=== PATIENT | male | born 1945 ===

== ENCOUNTER 2016-10-22 10:06 | Day surgery (SDC) | payer MEDICARE, MEDICAID ==
[2016-10-22 10:22] VITALS: BMI 28.1
[2016-10-22] MEDS ORDERED: MethylPREDNISolone Depo 40 mg/ml Inj ONE (11:03)
[2016-10-22] MEDS ORDERED: Bupivacaine HCl 0.5% PF (10 ml) Inj ONE (11:03)
[2016-10-22] MEDS ORDERED: Lidocaine 1% Inj (20ml) ONE (11:03)
[2016-10-22] MEDS ORDERED: methylPREDNISolone Depo 80 mg/ml Inj IM ONE ×2 (11:13→11:30)
[2016-10-22] MEDS ORDERED: Bupivacaine HCl 0.5% PF (10 ml) Inj IJ ONE ×2 (11:14→11:30)
[2016-10-22] MEDS ORDERED: Lidocaine 1% Inj (20ml) IJ ONE ×2 (11:14→11:30)
[2016-10-22 11:19] VITALS: RESP 18
[2016-10-22] MEDS ORDERED: Lactated Ringer's 1,000 ML IV ONE (11:25)
[2016-10-22] MEDS ORDERED: Midazolam 2 MG/2 ML VIAL ONE (11:30)
[2016-10-22 14:18] VITALS: O2SAT 95
[2016-10-22 15:32] VITALS: BP 142/76; PULSE 66; TEMP 98.3
--- NOTE | 2016-10-22 15:49 | RAD ---
PROCEDURE: Fluoroscopy up to 1 hr. HISTORY: PAIN MANAGEMENT COMPARISON: None TECHNIQUE: Standard protocol for this study/examination. FINDINGS: Total fluoroscopic time (continuous mode) utilized during the procedure: 11.6 seconds. IMPRESSION: Submitted images from the current procedure: 1.0.
--- NOTE | 2016-10-22 22:40 | OP ---
PROCEDURE DATE: 10/22/2016 PREOPERATIVE DIAGNOSIS: Right knee osteoarthritis. POSTOPERATIVE DIAGNOSIS: Right knee osteoarthritis. PROCEDURE: Right knee genicular nerve block x3. SURGEON: Dr. Elenita Mcknight. TYPE OF ANESTHESIA: Monitored anesthesia care. ANESTHESIA ADMINISTERED BY: Dr. Santana. COMPLICATIONS: None. SPECIMEN: None. DESCRIPTION OF PROCEDURE: After discussion of the procedure with the patient including its risks, benefits, alternatives, outcome data, possibility of no effects, increased pain The patient consented to the procedure. He denies any recent infection, bleeding tendencies or being on anticoagulants. Decision was then made to proceed to the OR. The patient states that although he has pain in both knees, the right knee has been more bothersome in the last few weeks and he would like to have procedure performed for the right knee pain. The patient was transferred to the OR on fluoroscopy table in a supine position. A pillow was placed underneath right knee. The knee was then prepped and draped in a usual sterile fashion and sterile technique was adhered during the entire procedure. The region was then visualized on fluoroscopy view in the anterior and posterior orientation. The genicular nerves are located at the medial and lateral femoral epicondyle and also at the medial border of the tibial condyle. After the identification of all 3 target areas, the skin overlying this location was infiltrated with 1% lidocaine using 25 gauge needle. Subsequently a 25-gauge 3-1/2 inch spinal needle was incrementally advanced under fluoroscopic guidance until needle made bony contact with the target areas. Then,the fluoroscopy was switched to lateral view and the needle was advanced until all three are at the middle of the shaft. After satisfactory positioning of all three needles, contrast was used to rule out intravenous uptake. After doing so, approximately 4 mL of 0.5% Marcaine and Depo Medrol mixture was injected into each needle. At the end of the case, the needle was removed and the patient's knee was clean and dry and bandages were applied. The patient was then transferred to recovery area in good condition without any signs of RADIO DISPATCHER toxicity or any neurological defects. He will have a followup in our office in approximately 2 to 4 weeks. Elenita Mcknight MD [facility] # [id number]
== END 2016-10-22 16:13 | disposition home or self-care (01) ==
LOC: H.OPSURG 10:06
PROVIDERS: ATTEND Anesthesiology
DX: M17.11 Unilateral primary osteoarthritis, right knee (principal); I10 Essential (primary) hypertension
CPT/HCPCS: 64447; J1030; J1040; J2250; J3010; J7120

== ENCOUNTER 2016-12-10 10:28 | Day surgery (SDC) | payer MEDICARE, MEDICAID ==
[2016-12-10] MEDS ORDERED: MethylPREDNISolone Depo 40 mg/ml Inj ONE (11:09)
[2016-12-10] MEDS ORDERED: Lidocaine 1% Inj (20ml) ONE (11:09)
[2016-12-10] MEDS ORDERED: Bupivacaine HCl 0.5% PF (10 ml) Inj ONE (11:09)
[2016-12-10] MEDS ORDERED: Lactated Ringer's 1,000 ML IV ONE (11:30)
[2016-12-10] MEDS ORDERED: Midazolam 2 MG/2 ML VIAL ONE (11:32)
[2016-12-10] MEDS ORDERED: Propofol 10 mg/ml Inj (20 ML) ONE (11:32)
[2016-12-10] MEDS ORDERED: methylPREDNISolone Depo 80 mg/ml Inj IM ONE (11:35)
[2016-12-10] MEDS ORDERED: Lidocaine 1% Inj (20ml) IJ ONE (11:35)
[2016-12-10] MEDS ORDERED: Bupivacaine HCl 0.5% PF (10 ml) Inj IJ ONE (11:35)
[2016-12-10] MEDS ORDERED: Oxycodone/Acetaminophen 5/325 mg Tab PO PRN (12:18)
[2016-12-10] MEDS ORDERED: HYDROmorphone 0.5 mg/0.5 ml ISec ONE (12:21)
[2016-12-10 13:19] VITALS: RESP 18; O2SAT 97
[2016-12-10 14:18] VITALS: BP 138/78; PULSE 68; TEMP 97.6
--- NOTE | 2016-12-10 16:50 | OP ---
PROCEDURE DATE: 12/10/2016 PREOPERATIVE DIAGNOSIS: Left knee osteoarthritis. POSTOPERATIVE DIAGNOSIS: Left knee osteoarthritis. PROCEDURE: Left knee genicular nerve block x3. ANESTHESIOLOGIST: Dr. Santana. SURGEON: Dr. Elenita Mcknight M.D. TYPE OF ANESTHESIA: Monitored anesthesia care. COMPLICATIONS: None. SPECIMEN: None. DESCRIPTION OF PROCEDURE: As follows, after we had discussion of the procedure with the patient including its risks, benefits, alternatives, outcome data, possibility of no effects or increased pain, the patient consented to the procedure. He denies any recent infections, bleeding tendencies, or being on anticoagulants. Decision was then made to proceed to the OR. The patient was placed on a fluoroscopy table in a supine position with 2 pillows underneath his left knee. The knee was prepped and draped in a usual sterile fashion and sterile technique was adhered to during the entire procedure. The genicular nerves are located adjacent to the medial and lateral femoral condyle and also the lateral tibial condyle. The 3 above-target areas were then identified on the fluoroscopy in the anterior-posterior view. The skin overlying the 3 above-target areas was then infiltrated with 1% Xylocaine using 25 gauge needle. Subsequently, a 22-gauge 3-1/2-inch spinal needle was then incrementally advanced under fluoroscopic guidance until tip of needle made bony contact with the target areas. After satisfactory positioning of all 3 needles, lateral fluoroscopy view was obtained to confirm the tip of the needle to be at the midpoint of the bony shaft. After appropriate placement of all 3 needles, approximately 4 mL of 0.5% Marcaine and Depo-Medrol mixture was injected into each needle. At the end of the case, the patient's knee was cleaned and dried and bandages were applied. The patient was then transferred to recovery area in good conditions without any signs of TORQUE TESTER toxicity or any neurological deficits. He will have a follow up in office in approximately 2 to 4 weeks. Eelnita Mcknight MD
--- NOTE | 2016-12-10 17:00 | RAD ---
PROCEDURE: Fluoroscopy up to 1 hr. HISTORY: PAIN MANAGEMENT COMPARISON: None TECHNIQUE: Standard protocol for this study/examination. FINDINGS: Total fluoroscopic time (continuous mode) utilized during the procedure: 10.3 seconds. Submitted images from the current procedure: 1.0. IMPRESSION: Less than 1 hr fluoroscopic time utilized during performance of the procedure.
== END 2016-12-10 17:00 | disposition home or self-care (01) ==
LOC: H.OPSURG 10:28
PROVIDERS: ATTEND Anesthesiology
DX: M17.12 Unilateral primary osteoarthritis, left knee (principal); I10 Essential (primary) hypertension
CPT/HCPCS: 64450; J1030; J1040; J1170; J2250; J2704; J3010; J7120

== ENCOUNTER 2017-01-28 10:46 | Day surgery (SDC) | payer MEDICARE, MEDICAID ==
[2017-01-28] MEDS ORDERED: Bupivacaine HCl 0.5% PF (10 ml) Inj ONE (11:48)
[2017-01-28] MEDS ORDERED: methylPREDNISolone Depo 80 mg/ml Inj ONE (11:48)
[2017-01-28] MEDS ORDERED: Lidocaine 1% Inj (20ml) ONE (11:49)
[2017-01-28] MEDS ORDERED: Midazolam 2 MG/2 ML VIAL ONE (11:52)
[2017-01-28] MEDS ORDERED: Propofol 10 mg/ml Inj (20 ML) ONE (11:52)
[2017-01-28] MEDS ORDERED: Lactated Ringer's 1,000 ML IV ONE (12:15)
[2017-01-28] MEDS ORDERED: methylPREDNISolone Depo 80 mg/ml Inj IM ONE (12:21)
[2017-01-28] MEDS ORDERED: HYDROmorphone 0.5 mg/0.5 ml ISec ONE (12:40)
[2017-01-28] MEDS ORDERED: HYDROmorphone 0.5 mg/0.5 ml ISec IVP PRN (12:47)
[2017-01-28 15:27] VITALS: BP 144/78; PULSE 60; RESP 18; TEMP 97.5; O2SAT 99
--- NOTE | 2017-01-28 16:33 | RAD ---
PROCEDURE: Fluoroscopy up to 1 hr. HISTORY: PAIN MANAGEMENT COMPARISON: None TECHNIQUE: Standard protocol for this study/examination. FINDINGS: Total fluoroscopic time (continuous mode) utilized during the procedure: 18.1 seconds. Total exam DLP: (mGy): 0.8 IMPRESSION: Less than 1 hr fluoroscopic time utilized during performance of the procedure.
--- NOTE | 2017-01-29 17:58 | OP ---
PROCEDURE DATE: 01/28/2017 PREOPERATIVE DIAGNOSIS: Right knee osteoarthritis. POSTOPERATIVE DIAGNOSIS: Right knee osteoarthritis. PROCEDURE: Right knee genicular nerve block x3. SURGEON: Elenita Mcknight MD. TYPE OF ANESTHESIA: Monitored anesthesia care. ANESTHESIA ADMINISTERED BY: Dr. Santana. COMPLICATIONS: None. SPECIMEN: None. DESCRIPTION OF PROCEDURE: After we had discussion of the procedure with the patient, including its risks, benefits, alternatives, outcome data, possibility of no effect or increased pain, the patient consented to the procedure. He denies any recent infections, bleeding tendencies, or being on anticoagulants, a decision was then made to proceed to the OR. The patient was placed on a fluoroscopy table in a supine position with two pillows underneath his right knee. The knee was prepped and draped in the usual sterile fashion, and sterile technique was adhered to during the entire procedure. The target nerves are located at the midshaft position of the lateral and medial femoral condyle and also, the medial tibial condyle. The skin overlying the 3 areas was infiltrated with 1% lidocaine using a 25-gauge needle. Subsequently, a 22-gauge 3-1/2-inch spinal needle was then inserted perpendicular to the skin until bony contact with the target regions were made. Under lateral fluoroscopy view, the needle was then advanced to the midshaft position. At this point, after negative aspiration, approximately 4 mL of a 0.5% Marcaine and Depo-Medrol mixture was gradually injected. At the end of the case, the patient's knee was cleaned and dried and bandages were applied. The patient was then transferred to the recovery area in good condition without any signs of CIGARETTE MACHINES MECHANIC toxicity or any neurovascular deficit. He will have a followup in our office in approximately 2 to 4 weeks. Elenita Mcknight MD
== END 2017-01-28 15:20 | disposition home or self-care (01) ==
LOC: H.OPSURG 10:46
PROVIDERS: ATTEND Anesthesiology
DX: M17.11 Unilateral primary osteoarthritis, right knee (principal); J45.909 Unspecified asthma, uncomplicated
CPT/HCPCS: 64450; J1040; J1170; J2250; J2704; J3010; J7120

== ENCOUNTER 2017-01-31 15:27 | Emergency (ER) | payer MEDICAID, MEDICARE ==
[2017-01-31 15:27] VITALS: BMI 28.1
[2017-01-31 15:53] VITALS: RESP 16; TEMP 97.2
[2017-01-31 15:54] VITALS: O2SAT 98
--- NOTE | 2017-01-31 16:26 | ED PDOC ---
HPI: Headache Time Seen by Provider: 01/31/17 15:55 Chief Complaint (Nursing): Headache Chief Complaint (Provider): Headache History Per: Patient History/Exam Limitations: no limitations Onset/Duration Of Symptoms: Days (x1) Current Symptoms Are (Timing): Still Present Additional Complaint(s): Tha Horton is a 71 year old male with a history of hypertension that presents to the ED with a chief complaint of headache located in the back of his head that he has been experiencing for the past day. Patient reports that he feels as though the pain is radiating down his neck and arms, and is associated with difficulty balancing. He states that he has had similar headaches when he runs out of hypertension medication. Patient reports that he is supposed to take Licinopril 20 mg twice daily, but that he ran out of it two days ago. He states that he took one dose of his 's Licinopril yesterday. This morning, he reports that he measured his blood pressured to be 170 systolic. He also reports generalized body pain and chest pain consistent with his arthritis. PMD: None Patient sees pain management doctor and Dr. Anaya for neurology. Against Medical Advice - AMA Patient Left Against Medical Advice: The patient declines admission to the hospital and wishes to leave the Emergency Department. This action is against my medical advice. This decision was made with informed refusal. The patient was told that admission to the hospital is necessary. Explanation of the reasons why were discussed. The risks of leaving were explained to the patient and include, but are not limited to, worsening of known or currently unknown conditions, permanent disability and from undiagnosed or untreated conditions. The patient has the capacity to make this informed decision and understands my explanation of the current medical problem and risks of leaving. The patient voluntarily accepts these risks and signed an AMA form documenting our conversation. The patient was given the opportunity to ask questions and reconsider. The patient was encouraged to return to the Emergency Department at any time for further care. NIHSS Stroke Scale - Date/Time Evaluation Performed Date Performed: 01/31/17 Time Performed: 15:55 When Was NIHSS Performed: Baseline - How Severe is the Stroke Level of Consciousness: 0=Alert LOC to Questions: 0=Both comments correct LOC to commands: 0=Obeys both correctly Best Gaze: 0=Normal Visual: 0=No visual loss Facial: 1=Minor asymmetry Motor Arm - Left: 0=No drift Motor Arm - Right: 0=No drift Motor Leg - Left: 0=No drift Motor Leg - Right: 0=No drift Limb Ataxia: 0=Absent Sensory: 0=Normal Best Language: 0=No aphasia Dysarthia: 0=Normal articulation Extinction & Inattention (Neglect): 0=Normal, no object Score: 1 Past Medical History Reviewed: Historical Data, Nursing Documentation, Vital Signs Vital Signs: Last Vital Signs Temp 97.2 F L 01/31/17 15:50 Pulse 68 01/31/17 15:50 Resp 16 01/31/17 15:50 BP 147/85 01/31/17 15:50 Pulse Ox 98 01/31/17 15:50 - Medical History PMH: Anxiety, Arthritis, Back Problems, COPD, HTN, Hypercholesterolemia, Migraine, Rheumatoid Arthritis, Sleep Apnea Denies: Asthma, CHF, HIV, Chronic Kidney Disease, Sexually Transmitted Disease - Surgical History Surgical History: Appendectomy, Hernia Repair Denies: CABG, Carotid Endarterectomy, Cholecystectomy, Coronary Stent, Endoscopy, Pacemaker, Tonsillectomy - Family History Family History: States: No Known Family Hx - Social History Current smoker - smoking cessation education provided: No Alcohol: None Drugs: Denies - Immunization History Hx Tetanus Toxoid Vaccination: No Hx Influenza Vaccination: No Hx Pneumococcal Vaccination: No - Home Medications Home Medications: Ambulatory Orders Medication Instructions Recorded Clorazepate Dipotassium [Tranxene 15 mg PO BID 01/30/16 T-Tab] Nabumetone [Relafen] 750 mg PO BID 10/22/16 Tamsulosin [Flomax] 0.4 mg PO DAILY 10/22/16 Acetaminophen/Oxycodone Hydr 1 tab PO Q8 PRN 12/10/16 [Percocet 10/325 mg Tab] Gabapentin 300 mg PO TID 12/10/16 Aspirin 325 mg PO DAILY #14 tab 01/31/17 Lisinopril [Zestril] 20 mg PO BID #30 tab 01/31/17 Carboxymethylcellulose Sodium 1 drop BOTHEYES QID 02/01/17 [Thera Tears] - Allergies Allergies/Adverse Reactions: Allergies Allergy/AdvReac Type Severity Reaction Status Date / Time No Known Allergies Allergy Verified 01/31/17 15:50 Review of Systems ROS Statement: Except As Marked, All Systems Reviewed And Found Negative (and as per HPI) Constitutional: Positive for: Other (generalized body pain) Cardiovascular: Positive for: Chest Pain Respiratory: Positive for: Shortness of Breath Neurological: Positive for: Headache (radiates down neck and arms) Physical Exam - Reviewed Nursing Documentation Reviewed: Yes Vital Signs Reviewed: Yes - Physical Exam Appears: Positive for: Well, No Acute Distress Head Exam: Positive for: ATRAUMATIC, NORMOCEPHALIC Skin: Positive for: Warm, Dry Eye Exam: Positive for: EOMI, PERRL ENT: Negative for: Pharyngeal Erythema, Tonsillar Exudate Neck: Positive for: Painless ROM, Supple Cardiovascular/Chest: Positive for: Regular Rate, Rhythm, Chest Non Tender. Negative for: Murmur Respiratory: Positive for: Normal Breath Sounds. Negative for: Wheezing Gastrointestinal/Abdominal: Positive for: Soft. Negative for: Tenderness Back: Positive for: Normal Inspection. Negative for: Decreased ROM Extremity: Positive for: Normal ROM. Negative for: Deformity Neurologic/Psych: Positive for: Alert, Oriented (x3). Negative for: Motor/ Sensory Deficits, Facial Droop (but had subtle loss of nasolabial fold, reported as normal) - Laboratory Results Result Diagrams: 01/31/17 16:33 01/31/17 16:33 - ECG O2 Sat by Pulse Oximetry: 98 (RA) Pulse Ox Interpretation: Normal Medical Decision Making Medical Decision Making: Impression: Pain (multiple sites)/Medication Refill/Hypertension Plan: * CT Head w/o contrast * Chest X-Ray * EKG * CMP * CBC * PTT * PT * Type and Screen * Lipid Panel * Hemoglobin A1C * Troponin * Accucheck * Reevaluation Accession No. : [id number] Patient Name / ID : JARON GOMES / [id number] Exam Date : 01/31/2017 16:29:04 ( Approved ) Study Comment : Sex / Age : M / 71Y Creator : MARCY CHAMBERS Dictator : Colorist Photography : Synthetic Plasterer : MARCY CHAMBERS Approver2 : Report Date : 01/31/2017 19:14:00 My Comment : [employer] [facility] Division of Radiology [address] [id number] Tel. no. Patient Name: THA HORTON Pt. Address: [address] [place] [address]. Rec #: [id number] [place] [address]: David NORMAN, Fely Belcher Pt CELL Order Location: [facility] : 1945 Male Age: 71 Order #: [id number] Reason for exam: headache CT Scan HEAD W/O CONTRAST Exam Date: 01/31/17 This imaging exam was performed at [facility] EXAM: CT Head Without Intravenous Contrast EXAM DATE/TIME: 01/31/2017 4:11 PM CLINICAL HISTORY: 71 years old, male; Pain; Headache TECHNIQUE: Axial computed tomography images of the head/brain without intravenous contrast. All CT scans at this facility use one or more dose reduction techniques, viz.: automated exposure control; ma/kV adjustment per patient size (including targeted exams where dose is matched to indication; i.e. head); or iterative reconstruction technique. Coronal and sagittal reformatted images were created and reviewed. COMPARISON: Prior images are not available for review. FINDINGS: Brain: There is prominence of sulci gyri and ventricles. There is no midline shift. There is decreased attenuation in periventricular white matter. There is an age-indeterminate focal infarct in the right basal ganglia There are no focal masses. There are no focal hemorrhages. Briones-white differentiation is visualized. Ventricles: See above Bones/joints: Bones: Cranial vault is intact. Soft tissues: There is left parietal scalp bruising. Sinuses: There is no acute sinusitis. Mastoid air cells: Ears and mastoids: Middle ears and mastoids are unremarkable. Orbits: Orbital contents are unremarkable. IMPRESSION: Mild atrophy and small vessel disease; age indeterminate right basal ganglia infarct; no bleed Additional findings as described above. Dictated By: Marcy Chambers MD, MD Dictated Date/Time: 01/31/171913 Signed By: Marcy Chambers MD Date Signed: 1913 Transcribed By: HELENA Transcribe Date/Time : 01/31/171913 LIZA/BLAKE DW pt findings and need for hospitalization. Pt refuses to stay in hospital reporting he had "things to take care of". He understands risks of leaving and signed AMA. Insists on prescription of lisinopril. Scribe Attestation: Documented by Josey Manning, acting as a scribe for Fely Hernandez MD. Provider Scribe Attestation: All medical record entries made by the Scribe were at my direction and personally dictated by me. I have reviewed the chart and agree that the record accurately reflects my personal performance of the history, physical exam, medical decision making, and the department course for this patient. I have also personally directed, reviewed, and agree with the discharge instructions and disposition. Disposition - Clinical Impression Clinical Impression: Hypertension, Basal ganglia infarction Counseled Patient/Family Regarding: Studies Performed, Diagnosis - Disposition Disposition: Against Medical Advice Disposition Time: 19:00 Condition: UNKNOWN Additional Instructions: YOU HAD A STROKE. RETURN TO ER IMMEDIATELY FOR FURTHER TREATMENT Prescriptions: Aspirin 325 mg PO DAILY #14 tab Lisinopril [Zestril] 20 mg PO BID #30 tab Instructions: Against Medical Advice (ED)
[2017-01-31 16:36] LABS: BASO # 0.1 K/uL (0.0-0.2); EOS # 0.2 K/uL (0.0-0.7); EOS % 3.9 % (0.0-4.0); HEMATOCRIT 40.8 % (35.0-51.0); LYMPH # 1.6 K/uL (1.0-4.3); LYMPH % 26.4 % (20.0-40.0); MEAN CELL VOLUME 95.3 fl (80.0-94.0); MEAN CORPUSCULAR HEMOGLOBIN 31.7 pg (27.0-31.0); MEAN CORPUSCULAR HGB CONC 33.3 g/dL (33.0-37.0); MONO # 0.5 K/uL (0.0-0.8); MONO % 7.6 % (0.0-10.0); NEUT # 3.7 K/uL (1.8-7.0); NEUT % 61.1 % (50.0-75.0); NRBC % 0.1 % (0.0-0.0); RED CELL DISTRIBUTION WIDTH 14.1 % (11.5-14.5); WHITE BLOOD COUNT 6.1 K/uL (4.8-10.8)
[2017-01-31 16:59] LABS: PARTIAL THROMBOPLASTIN TIME 34.9 Seconds (25.6-37.1)
[2017-01-31 17:06] LABS: ALB/GLOB RATIO 1.5 (1.0-2.1); ALKALINE PHOSPHATASE 91 U/L (38-126); ALT/SGPT 39 U/L (21-72); AST/SGOT 27 U/L (17-59); BILIRUBIN,TOTAL 0.3 mg/dl (0.2-1.3); BLOOD UREA NITROGEN 19 mg/dl (9-20); CALCIUM 9.3 mg/dL (8.4-10.2); CARBON DIOXIDE 27 mmol/L (22-30); CHLORIDE 104 mmol/L (98-107); CHOLESTEROL 224 mg/dL (0-199); GFR AFRICAN-AMERICAN > 60; GLUCOSE,RANDOM 95 mg/dL (75-110); POTASSIUM 3.9 MMOL/L (3.6-5.0); SODIUM 143 mmol/l (132-148); TOTAL PROTEIN 7.7 G/DL (6.3-8.2)
--- NOTE | 2017-01-31 18:10 | RAD ---
HISTORY: chest pain COMPARISON: Frontal chest 05/14/2016 prior FINDINGS: LUNGS: No infiltrates bilaterally. Improved inspiratory volume noted throughout. PLEURA: No significant pleural effusion identified, no pneumothorax apparent. CARDIOVASCULAR: Normal. OSSEOUS STRUCTURES: No significant abnormalities. VISUALIZED UPPER ABDOMEN: Normal. OTHER FINDINGS: None. IMPRESSION: No interval acute cardiopulmonary disease appreciated. Improved inspiratory volume noted.
[2017-01-31 18:35] VITALS: PULSE 53
--- NOTE | 2017-01-31 19:15 | CT ---
EXAM: CT Head Without Intravenous Contrast EXAM DATE/TIME: 01/31/2017 4:11 PM CLINICAL HISTORY: 71 years old, male; Pain; Headache TECHNIQUE: Axial computed tomography images of the head/brain without intravenous contrast. All CT scans at this facility use one or more dose reduction techniques, viz.: automated exposure control; ma/kV adjustment per patient size (including targeted exams where dose is matched to indication; i.e. head); or iterative reconstruction technique. Coronal and sagittal reformatted images were created and reviewed. COMPARISON: Prior images are not available for review. FINDINGS: Brain: There is prominence of sulci gyri and ventricles. There is no midline shift. There is decreased attenuation in periventricular white matter. There is an age-indeterminate focal infarct in the right basal ganglia There are no focal masses. There are no focal hemorrhages. Briones-white differentiation is visualized. Ventricles: See above Bones/joints: Bones: Cranial vault is intact. Soft tissues: There is left parietal scalp bruising. Sinuses: There is no acute sinusitis. Mastoid air cells: Ears and mastoids: Middle ears and mastoids are unremarkable. Orbits: Orbital contents are unremarkable. IMPRESSION: Mild atrophy and small vessel disease; age indeterminate right basal ganglia infarct; no bleed Additional findings as described above.
[2017-01-31 19:16] VITALS: BP 119/60
--- NOTE | 2017-02-02 12:33 | CARD ---
APPROVED REPORT EKG Measurement Heart [id number] <Conclusion> Sinus bradycardia Left bundle branch block Abnormal ECG
== END 2017-01-31 20:04 | disposition left against medical advice (07) ==
LOC: H.ER 15:27
DX: I10 Essential (primary) hypertension (principal); I44.7 Left bundle-branch block, unspecified; J44.9 Chronic obstructive pulmonary disease, unspecified; Z76.0 Encounter for issue of repeat prescription; Z79.82 Long term (current) use of aspirin; I73.9 Peripheral vascular disease, unspecified

== ENCOUNTER 2017-02-01 11:24 | Observation (INO) | payer MEDICARE, MEDICAID ==
[2017-02-01 11:24] VITALS: BMI 28.1
--- NOTE | 2017-02-01 12:02 | ED PDOC ---
HPI:STROKE - Notes: Notes:: Tha Horton is a 71 year old male that presents to the ED with a chief complaint of a right posterior headache. Patient presented to the ED yesterday and with diagnosed with CVA, but left AMA. Patient reports that yesterday he took Tramadol without relief. He denies any paresthesias, extremity weakness, visual changes, nausea, vomiting, or neck stiffness. NIHSS Stroke Scale - Date/Time Evaluation Performed When Was NIHSS Performed: Re-evaluation - How Severe is the Stroke Level of Consciousness: 0=Alert LOC to Questions: 0=Both comments correct LOC to commands: 0=Obeys both correctly Best Gaze: 0=Normal Visual: 0=No visual loss Facial: 1=Minor asymmetry Motor Arm - Left: 0=No drift Motor Arm - Right: 0=No drift Motor Leg - Left: 0=No drift Motor Leg - Right: 0=No drift Limb Ataxia: 0=Absent Sensory: 0=Normal Best Language: 0=No aphasia Dysarthia: 0=Normal articulation Extinction & Inattention (Neglect): 0=Normal, no object Score: 1 rTPA Inclusion/Exclusion - Refusal of Treatment Patient Refused Treatment: No - Inclusion Criteria for Altepase Patient is 18 years or Older: Yes The Clinical Diagnosis of Ischemic Stroke That is Causing a Potentially Disabling Neurological Deficit: No Time of Onset is Well Established to be Less Than 270 Minute Before Treatment Would Begin: No Risk/Benefit Discussed With Patient/Family Member Present: No - Warning to TPA With Conditions Following Conditions Weighed Against Anticipated Benefit: Yes Condition: Stroke Serevity Too Mild Past Medical History Reviewed: Historical Data, Nursing Documentation, Vital Signs Vital Signs: Last Vital Signs Temp 97.6 F 02/01/17 11:38 Pulse 63 02/01/17 11:38 Resp 16 02/01/17 11:38 BP 150/79 02/01/17 11:38 Pulse Ox 96 02/01/17 11:38 - Medical History PMH: Anxiety, Arthritis, Back Problems, COPD, HTN, Hypercholesterolemia, Migraine, Rheumatoid Arthritis, Sleep Apnea Denies: Asthma, CHF, HIV, Chronic Kidney Disease, Sexually Transmitted Disease - Surgical History Surgical History: Appendectomy, Hernia Repair Denies: CABG, Carotid Endarterectomy, Cholecystectomy, Coronary Stent, Endoscopy, Pacemaker, Tonsillectomy - Family History Family History: States: Unknown Family Hx - Immunization History Hx Tetanus Toxoid Vaccination: No Hx Influenza Vaccination: No Hx Pneumococcal Vaccination: No - Home Medications Home Medications: Ambulatory Orders Medication Instructions Recorded Clorazepate Dipotassium [Tranxene 15 mg PO BID 01/30/16 T-Tab] Lisinopril/Hydrochlorothiazide 1 tab PO DAILY #30 tab 02/08/16 [Lisinopril-Hydrochlorothiazide 25 mg-20 mg] Nabumetone [Relafen] 750 mg PO BID 10/22/16 Tamsulosin [Flomax] 0.4 mg PO DAILY 10/22/16 Acetaminophen/Oxycodone Hydr 1 tab PO Q8 PRN 12/10/16 [Percocet 10/325 mg Tab] Gabapentin 300 mg PO TID 12/10/16 Aspirin 325 mg PO DAILY #14 tab 01/31/17 Lisinopril [Zestril] 20 mg PO BID #30 tab 01/31/17 - Allergies Allergies/Adverse Reactions: Allergies Allergy/AdvReac Type Severity Reaction Status Date / Time No Known Allergies Allergy Verified 01/31/17 15:50 Review of Systems Eyes: Negative for: Vision Change Gastrointestinal: Negative for: Nausea, Vomiting Musculoskeletal: Negative for: Neck Pain (denies neck stiffness) Neurological: Positive for: Headache (right posterior). Negative for: Weakness , Other (denies paresthesia) Physical Exam - Reviewed Nursing Documentation Reviewed: Yes Vital Signs Reviewed: Yes - Physical Exam Appears: Positive for: Non-toxic, No Acute Distress Head Exam: Positive for: ATRAUMATIC, NORMOCEPHALIC Skin: Positive for: Normal Color, Warm Eye Exam: Positive for: Normal appearance, EOMI, PERRL Neck: Positive for: Normal, Supple Cardiovascular/Chest: Positive for: Regular Rate, Rhythm. Negative for: Murmur Respiratory: Positive for: Normal Breath Sounds. Negative for: Wheezing Gastrointestinal/Abdominal: Positive for: Normal Exam, Soft. Negative for: Tenderness Extremity: Positive for: Normal ROM. Negative for: Pedal Edema, Deformity Neurologic/Psych: Positive for: Alert, Oriented, Facial Droop (left facial droop ). Negative for: Motor/Sensory Deficits - Laboratory Results Result Diagrams: 02/01/17 12:10 02/01/17 12:10 - ECG O2 Sat by Pulse Oximetry: 96 (RA) Pulse Ox Interpretation: Normal Medical Decision Making Medical Decision Making: Impression: CVA vs. Headache Plan: * Chest X-Ray * EKG * CMP * CBC * PTT * PTT * Hemoblogin A1C * Lipid Panel * Troponin I * Type and Screen * Reevaluation 13:[address] Anaya, patient's neurologist, recommended 500 mg IV Depakote, 500 mg IV Solumedrol, and repeat head CT. Scribe Attestation: Documented by Josey Manning, acting as a scribe for Teresa Morrison MD. Provider Scribe Attestation: All medical record entries made by the Scribe were at my direction and personally dictated by me. I have reviewed the chart and agree that the record accurately reflects my personal performance of the history, physical exam, medical decision making, and the department course for this patient. I have also personally directed, reviewed, and agree with the discharge instructions and disposition. Disposition - Clinical Impression Clinical Impression: CVA (cerebral vascular accident) - Patient ED Disposition Is Patient to be Admitted: Yes - Disposition Disposition Time: 13:41 Condition: STABLE - Pt Status Changed To: Hospital Disposition Of: Inpatient - Admit Certification Admit to Inpatient:: After my assessment, the patient will require hospitalization for at least two midnights. This is because of the severity of symptoms shown, intensity of services needed, and/or the medical risk in this patient being treated as an outpatient. - POA Present On Arrival: None
[2017-02-01 12:30] LABS: BASO % 0.7 % (0.0-2.0); EOS # 0.3 K/uL (0.0-0.7); EOS % 4.2 % (0.0-4.0); HEMATOCRIT 38.6 % (35.0-51.0); LYMPH # 1.8 K/uL (1.0-4.3); LYMPH % 27.6 % (20.0-40.0); MEAN CORPUSCULAR HEMOGLOBIN 31.8 pg (27.0-31.0); MEAN CORPUSCULAR HGB CONC 33.4 g/dL (33.0-37.0); MEAN PLATELET VOLUME 8.3 fl (7.2-11.7); MONO # 0.6 K/uL (0.0-0.8); MONO % 9.1 % (0.0-10.0); NEUT # 3.9 K/uL (1.8-7.0); NEUT % 58.4 % (50.0-75.0); RED CELL DISTRIBUTION WIDTH 14.1 % (11.5-14.5); WHITE BLOOD COUNT 6.6 K/uL (4.8-10.8)
[2017-02-01 12:47] LABS: ALB/GLOB RATIO 1.4 (1.0-2.1); ALKALINE PHOSPHATASE 88 U/L (38-126); ALT/SGPT 33 U/L (21-72); AST/SGOT 28 U/L (17-59); BILIRUBIN,TOTAL 0.4 mg/dl (0.2-1.3); BLOOD UREA NITROGEN 17 mg/dl (9-20); CALCIUM 9.3 mg/dL (8.4-10.2); CARBON DIOXIDE 27 mmol/L (22-30); CHLORIDE 102 mmol/L (98-107); CHOLESTEROL 217 mg/dL (0-199); GFR AFRICAN-AMERICAN > 60; GLUCOSE,RANDOM 108 mg/dL (75-110); POTASSIUM 3.8 MMOL/L (3.6-5.0); SODIUM 140 mmol/l (132-148); TOTAL PROTEIN 7.3 G/DL (6.3-8.2)
[2017-02-01] MEDS ORDERED: Valproate 500 MG in Sodium Chloride 0.9% 100 ML IVPB ONE (13:34)
[2017-02-01] MEDS ORDERED: methylPREDNISolone 125 MG in Sodium Chloride 0.9% 50 ML IV STA (13:35)
[2017-02-01 13:39] LABS: PARTIAL THROMBOPLASTIN TIME 34.4 Seconds (25.6-37.1)
--- NOTE | 2017-02-01 14:01 | RAD ---
HISTORY: L facial droop COMPARISON: Chest radiograph 01/31/2017 16:44 p.m. FINDINGS: LUNGS: No active pulmonary disease. PLEURA: No significant pleural effusion identified, no pneumothorax apparent. CARDIOVASCULAR: Normal. OSSEOUS STRUCTURES: No significant abnormalities. VISUALIZED UPPER ABDOMEN: Normal. OTHER FINDINGS: None. IMPRESSION: No interval acute cardiopulmonary disease appreciated.
[2017-02-01] MEDS ORDERED: Valproate Sodium 500 mg Inj ONE (14:08)
--- NOTE | 2017-02-01 14:22 | CT ---
PROCEDURE: CT HEAD WITHOUT CONTRAST. HISTORY: L facial droop COMPARISON: Unenhanced head CT 01/31/2017. TECHNIQUE: Axial computed tomography images were obtained through the head/brain without intravenous contrast. Radiation dose: Total exam DLP = 949.82 mGy-cm. This CT exam was performed using one or more of the following dose reduction techniques: Automated exposure control, adjustment of the mA and/or kV according to patient size, and/or use of iterative reconstruction technique. FINDINGS: HEMORRHAGE: No intracranial hemorrhage. BRAIN: Chronic lacune is again seen the right external capsule anteriorly. Minimal diffuse cerebral atrophy is reiterated. No mass effects or suspicious extra-axial collection identified. Midline brain anatomy appears diffusely unremarkable. VENTRICLES: Unremarkable. No hydrocephalus. CALVARIUM: Unremarkable. PARANASAL SINUSES: Unremarkable as visualized. No significant inflammatory changes. MASTOID AIR CELLS: Unremarkable as visualized. No inflammatory changes. OTHER FINDINGS: None. IMPRESSION: No definitive acute intracranial findings by standard CT criteria. Chronic lacune is again seen the right external capsule anteriorly and minimal age related neuro degenerative changes are identified once again. Follow up CT or MRI are available if clinically warranted.
[2017-02-01] MEDS ORDERED: Oxycodone/Acetaminophen 5/325 mg Tab PO PRN (16:44)
[2017-02-01] MEDS ORDERED: CLORAZEPATE DIPOTASSIUM 15 MG PO SCH (17:00)
[2017-02-01] MEDS: CARBOXYMETHYLCELLULOSE SODIUM BOTHEYES SCH ×2 (18:15→23:50)
[2017-02-01] MEDS: Enoxaparin 40 mg Syringe SC SCH (21:31)
[2017-02-02 08:03] VITALS: RESP 18
[2017-02-02] MEDS: Enoxaparin 40 mg Syringe SC SCH (09:18)
[2017-02-02] MEDS: CARBOXYMETHYLCELLULOSE SODIUM BOTHEYES SCH ×3 (09:19→16:40)
[2017-02-02] MEDS ORDERED: Apap-Butalbital-Caffeine 325-50-40mg Tab PO PRN (11:41)
[2017-02-02 12:07] VITALS: TEMP 98.4; O2SAT 97
--- NOTE | 2017-02-02 12:23 | CARD ---
APPROVED REPORT EKG Measurement Heart [id number] ID [id number] <Conclusion> Sinus bradycardia Left bundle branch block Abnormal ECG
--- NOTE | 2017-02-02 12:41 | MRI ---
PROCEDURE: MRI BRAIN WITHOUT CONTRAST HISTORY: intractable headache COMPARISON: Comparison made with CT scan brain dated 02/01/2017. Mid. Comparison also made with prior MRI of the brain 05/10/2012. TECHNIQUE: Multiplanar, multisequence MR images of the brain were obtained without intravenous contrast enhancement. FINDINGS: HEMORRHAGE: No acute parenchymal, subarachnoid nor extra-axial hemorrhage. There is however a slit-like area of hemosiderin in the right lateral basal ganglia again seen consistent with residua of old hemorrhage most likely representing sequela of of old hypertensive hemorrhage of or possibly. . There is mild surrounding gliosis on along the medial margin extending superiorly into the right anterior coronal radiata and periventricular white matter. DWI: No evidence of acute infarcts seen on diffusion imaging BRAIN PARENCHYMA: Mild diffuse confluent chronic white matter ischemic changes are also seen with multiple more discrete chronic appearing lacunar type infarcts scattered about the deep and subcortical white matter of both cerebral hemispheres and bilateral basal nuclei. Note also made of dilated perivascular spaces within the basal nuclei and deep white matter. Moderate central volume loss evidenced by disproportionate enlargement of the ventricles compared sulci. VENTRICLES: No evidence of obstructive hydrocephalus. CRANIUM: No acute calvarial abnormalities ORBITS: Orbits and contents grossly unremarkable. PARANASAL SINUSES/MASTOIDS: Clear VASCULAR SYSTEM: Visualized major vascular flow voids at skull base patent. OTHER FINDINGS: None. IMPRESSION: No evidence of acute intracranial hemorrhage or infarct. There is evidence of old hemorrhage right lateral basal ganglia with surrounding gliosis. Chronic white matter and basal nuclei ischemic changes. Moderate central volume loss.
--- NOTE | 2017-02-02 13:58 | CP.PCM.PCO ---
Assessment/Plan - Assessment/Plan Assessment (Free Text): Pt seen and examined MRI negative for acute changes, Seen by Neurologist Dr Anaya and cleared. Pt to go home on gabapentin and fiorocet for headaches. The initial thought was that patient would need 2 overnights, however, Patient unexpected improved and will be discharged today. RX provided to patient. Discussed with Dr Odonnell who agrees with plan. - Consults Consult Orders: Consultations 02/01/17 17:12 Social Work Referral Routine Comment: D/C PLANNING Physician Instructions: Reason For Exam: CVA - Problems Patient Problems: Problem List (Active/Current) Problem Status Onset Code CVA (cerebral vascular accident) Acute I63.9
--- NOTE | 2017-02-02 15:29 | CON ---
NEUROLOGY CONSULTATION DATE OF CONSULTATION: 02/02/2017 CHIEF COMPLAINT/HISTORY OF PRESENT ILLNESS: Right-sided headache radiating down his neck and arms with some difficulty in balance, has history of hypertension and anxiety, history of osteoarthritis of the bilateral knees. Apparently, he was having a right-sided posterior headache, diffuse, pressure type, throbbing in nature, radiating to the top of the head without any paresthesia at this time. He was evaluated for CVA. His MRI of the brain showed no acute intracranial abnormality. Currently, he is sitting at the edge of the bed, no acute distress, moving all extremities, no pronator drift seen. Sensory exam, light touch, pinprick, proprioception, and vibration are intact. No focal neurological signs seen on examination. He is on gabapentin for neuropathic pain as well as chronic back pain. He is on aspirin 325 p.o. daily. PAST MEDICAL HISTORY: Chronic pain, back and neck, history of osteoarthritis of the knees bilaterally, hypertension, anxiety, and chronic tension headaches. REVIEW OF SYSTEMS: A 14-point review of systems is negative except in the HPI. ALLERGIES: NO KNOWN DRUG ALLERGIES. SOCIAL HISTORY: No illicit drug use, smoking, or EtOH abuse. FAMILY HISTORY: Noncontributory. MEDICATIONS: Reviewed by nurse per reconciliation sheet. PHYSICAL EXAMINATION: VITAL SIGNS: Temperature afebrile, pulse rate of 64, blood pressure of 134/74, respiratory rate 18, oxygen saturation 97% on room air. GENERAL: The patient is sitting up in bed, no acute distress. HEENT: Head is atraumatic and normocephalic. PERRLA. Extraocular muscles are intact. NECK: Supple. No JVD. No adenopathy noted. LUNGS: Clear to auscultation. No adventitious sounds. HEART: S1 and S2. Normal rate and rhythm. No murmurs, rubs, or gallops. ABDOMEN: Soft, nontender, and nondistended. Bowel sounds are present. EXTREMITIES: No clubbing. No cyanosis. Peripheral pulses 2+ felt bilaterally. NEUROLOGIC: Cranial nerves II through XII are intact. Motor, moves all extremities equally. Toes are downgoing bilaterally. Sensory, light touch, pinprick, proprioception, and vibration are intact. DTRs are 2+ throughout. Coordination, [id number] intact. Gait is normal. LABORATORY DATA: Sodium is 140, potassium 3.8, chloride 102, carbon dioxide 27, BUN of 17, creatinine 0.8, random glucose 108. ASSESSMENT AND PLAN: This is a 71-year-old man with history of bilateral osteoarthritis of the knees, history of hypertension, chronic back pain, history of chronic headaches, who presents with worsening headaches on the right temporal area as well as occiput area, pounding in nature without any paresthesias in the extremities and no focal weakness. He has elevated triglycerides and cholesterol. He is currently on aspirin. A1c is 5.7. MRI of the brain showed no acute intracranial abnormality. His B12 level in the past was normal. At this time, he has had breakthrough headaches, most likely chronic tension based headaches from underlying anxiety disorder with a migraine component. We will continue with: 1. Gabapentin 300 mg p.o. t.i.d. and Fioricet at acute onset of headache q. 4 hours. 2. Continue with clonazepam for his anxiety disorder. 3. Follow up with Orthopedics for his bilateral osteoarthritis of the knee and pain management. Once again, he is clinically stable from my standpoint. Tio Anaya MD
[2017-02-02 16:43] VITALS: BP 136/75; PULSE 64
--- NOTE | 2017-02-02 19:10 | HP ---
CHIEF COMPLAINT: Headache. HISTORY OF PRESENT ILLNESS: This is a 71-year-old male, known case of hypertension, elevated cholesterol, history of migraine, rheumatoid arthritis, anxiety, chronic back pain who was having headache and was seen in the emergency room a day before and was admitted, but the patient signed out against medical advice and the patient continued to have same symptoms, so the patient returned to the hospital and was admitted for further management. REVIEW OF SYSTEMS: Right now is negative for headache, dizziness, syncope, loss of consciousness, chest pain, shortness of breath, vomiting, diarrhea, constipation, any new joint or extremity pain. Review of systems of all other organ system is unremarkable. PAST MEDICAL HISTORY: Significant for hypertension, elevated cholesterol, COPD, rheumatoid arthritis, migraine, anxiety, arthritis. PAST SURGICAL HISTORY: Remarkable for hernia and appendectomy. PERSONAL HISTORY: The patient is currently nonsmoker, nondrinker, no substance abuse. MEDICATIONS: The patient is on multiple medications, which is as per reconciliation sheet, which was reviewed and ordered. ALLERGIES: HE IS NOT ALLERGIC TO ANY MEDICATION. FAMILY HISTORY: Noncontributory. PHYSICAL EXAMINATION GENERAL: Well-built, well-nourished 71-year-old male, in no acute distress. VITAL SIGNS: Temperature 98.4, pulse 64, respirations 18, blood pressure 134/74. HEENT: The patient seems to have small facial droop. No JVD. No thyromegaly. No lymphadenopathy. No nystagmus. Normocephalic and atraumatic skull. HEART: S1 and S2, normal and regular. No significant murmur, gallop, or rub is heard. LUNGS: Shows good bilateral air exchange. No rales or rhonchi. ABDOMEN: Soft and nontender. No organomegaly. No fluid. Bowel sounds are plus. EXTERNAL GENITALIA: Appropriate for the patient's age. Stool for occult blood is negative. EXTREMITIES: No edema. No calf swelling. No tenderness. No acute ischemia. CENTRAL NERVOUS SYSTEM: Essentially unchanged from the patient's previous exam. There is some facial droop, but no motor weakness. DIAGNOSTIC DATA: Chest x-ray is clear. EKG shows sinus tachycardia, left bundle branch block, but no acute ST-T changes are appreciated. CAT scan of head shows chronic lacunar infarct, but no acute changes. MRI also essentially confirmed the same finding. Telemetry monitoring does not show any significant arrhythmias. ADMITTING IMPRESSION: Acute cerebrovascular accident , hypertension, elevated cholesterol, chronic obstructive pulmonary disease, arthritis. PLAN: Plan as ordered. Case and plan discussed with the patient. Long Odonnell MD
== END 2017-02-02 17:00 | disposition home or self-care (01) ==
LOC: H.ER 11:24 → H.ERHOLD 13:41 → INTOOBSV 13:41 → H.TEL 16:13
PROVIDERS: ADMIT Internal Medicine; ATTEND Internal Medicine
DX: G44.229 Chronic tension-type headache, not intractable (principal); G43.909 Migraine, unspecified, not intractable, without status migrainosus; J44.9 Chronic obstructive pulmonary disease, unspecified; M06.9 Rheumatoid arthritis, unspecified; I10 Essential (primary) hypertension; E78.1 Pure hyperglyceridemia; E78.00 Pure hypercholesterolemia, unspecified; G89.29 Other chronic pain; F41.9 Anxiety disorder, unspecified; M17.0 Bilateral primary osteoarthritis of knee; Z79.82 Long term (current) use of aspirin
CPT/HCPCS: 70450; 70551; 71010; 80053; 80061; 82948; 83036; 84484; 85025; 85610; 85730; 86850; 86900; 93005; 96365; 96375; 97161; 97165; 99285; G0378; G8978; G8979; G8987; G8988; J1170; J1650; J2405; J2930

== ENCOUNTER 2017-04-28 08:32 | Day surgery (SDC) | payer MEDICARE, MEDICAID ==
[2017-04-28 09:00] VITALS: BMI 26.6
[2017-04-28 09:29] VITALS: RESP 18
[2017-04-28] MEDS ORDERED: MethylPREDNISolone Depo 40 mg/ml Inj ONE (09:32)
[2017-04-28] MEDS ORDERED: Lidocaine 1% Inj (20ml) ONE (09:33)
[2017-04-28] MEDS ORDERED: Bupivacaine HCl 0.5% PF (10 ml) Inj ONE (09:33)
[2017-04-28] MEDS ORDERED: Propofol 10 mg/ml Inj (20 ML) ONE (09:50)
[2017-04-28] MEDS ORDERED: Lactated Ringer's 1,000 ML IV ONE (10:10)
[2017-04-28] MEDS ORDERED: methylPREDNISolone Depo 80 mg/ml Inj IM ONE (10:20)
[2017-04-28] MEDS ORDERED: Lidocaine 1% Inj (20ml) IJ ONE (10:20)
[2017-04-28] MEDS ORDERED: Bupivacaine HCl 0.5% PF (10 ml) Inj IJ ONE (10:20)
[2017-04-28] MEDS ORDERED: Lactated Ringer's 1,000 ML IV SCH (11:00)
[2017-04-28 12:14] VITALS: O2SAT 100
--- NOTE | 2017-04-28 13:00 | OP ---
PROCEDURE DATE: 04/28/2017 PREOPERATIVE DIAGNOSIS: Lumbar facet syndrome. POSTOPERATIVE DIAGNOSIS: Lumbar facet syndrome. PROCEDURE: Bilateral L3, L4 and L5 medial branch nerve block. SURGEON: Elenita Mcknight MD ANESTHESIOLOGIST: Dionicio Harrell MD TYPE OF ANESTHESIA: Monitored anesthesia care. COMPLICATIONS: None. SPECIMEN: None. PROCEDURE FOLLOWS: After discussion of the procedure with the patient including its risks, benefits, alternative, outcome data, possibility of no effect or increased pain, the patient consented to the procedure. He denies any recent infections, bleeding tendencies or being on anticoagulants; the decision was then made to proceed to the OR. DESCRIPTION OF PROCEDURE: The patient was placed on the fluoroscopy table in a prone position with 2 pillows underneath his abdomen. The back was prepped and draped in a usual sterile fashion and sterile technique was adhered during the entire procedure. The L3, L4 and L5 medial branch nerves are located at the intersection of the superior articular process and the transverse process of the L4 and L5 pedicle along with the sacral ala. The three above target areas were first visualized on the left side by turning the fluoroscopy towards the left at approximately 15 degrees. The skin overlying the three above target areas was then infiltrated with 1% lidocaine using a 25-gauge needle. Subsequently, a 22-gauge 3.5-inch spinal needle was then incrementally advanced under fluoroscopic guidance until tip of the needle made bony contact with all three target areas. After satisfactory positioning of all three needles, approximately 3 mL of 0.5% Marcaine and Depo-Medrol mixture was injected. The needles were then removed and the same exact procedure was performed on the contralateral right side using the same medications and techniques. At the end of the case, the patient's back was cleaned and dried, and bandages were applied. The patient was then transferred to the recovery area in good condition without any signs or SECURITY SYSTEMS TECHNICIAN toxicity or any neurological deficits. He will be following in the office in approximately 2 to 4 weeks. Elenita Mcknight MD
[2017-04-28 15:27] VITALS: TEMP 97.2
[2017-04-28 15:28] VITALS: BP 138/76; PULSE 58
--- NOTE | 2017-04-29 15:11 | RAD ---
PROCEDURE: Lumbar epidural HISTORY: PAIN MANAGEMENT COMPARISON: None TECHNIQUE: Standard protocol for this study/examination. FINDINGS: Total fluoroscopic time (continuous mode) utilized during the procedure: 26.1 seconds. Total exam DLP: 6.24 (mGy) IMPRESSION: Less than 1 hr fluoroscopic time utilized during performance of the procedure.
== END 2017-04-28 16:00 | disposition home or self-care (01) ==
LOC: H.OPSURG 08:32
PROVIDERS: ATTEND Anesthesiology
DX: M46.96 Unspecified inflammatory spondylopathy, lumbar region (principal)
CPT/HCPCS: 64493; 64495; J1030; J1040; J2001; J2704; J7120

== ENCOUNTER 2017-07-24 09:45 | Day surgery (SDC) | payer MEDICARE, MEDICAID ==
[2017-07-24] MEDS ORDERED: Lactated Ringer's 1,000 ML IV ONE (10:59)
[2017-07-24] MEDS ORDERED: Midazolam 2 MG/2 ML VIAL ONE (11:09)
[2017-07-24] MEDS ORDERED: methylPREDNISolone Depo 80 mg/ml Inj ONE (11:35)
[2017-07-24] MEDS ORDERED: Lidocaine 1% Inj (20ml) IJ ONE ×3 (11:55)
[2017-07-24] MEDS ORDERED: Bupivacaine 0.5% Inj(30mL) IJ ONE ×2 (11:56)
[2017-07-24] MEDS ORDERED: Lidocaine 2% PF (10 ml) Amp ONE (12:03)
[2017-07-24] MEDS ORDERED: Lactated Ringer's 1,000 ML IV SCH (12:30)
[2017-07-24] MEDS ORDERED: Morphine 4 MG/ML VIAL ONE (12:34)
[2017-07-24 12:46] VITALS: O2SAT 100
[2017-07-24 13:27] VITALS: RESP 18
--- NOTE | 2017-07-24 14:08 | RAD ---
PROCEDURE: Intraoperative Fluoroscopy. HISTORY: PAIN MANAGEMENT FINDINGS: Fluoroscopic assistance was provided. 74.1 seconds fluoroscopy time utilized during this procedure. Please refer to the operative report from [facility].
[2017-07-24 14:22] VITALS: BP 143/79; PULSE 73; TEMP 97.6
--- NOTE | 2017-07-24 22:10 | OP ---
PROCEDURE DATE: 07/24/2017 PREOPERATIVE DIAGNOSIS: Lumbar facet syndrome. POSTOPERATIVE DIAGNOSIS: Lumbar facet syndrome. PROCEDURE: Bilateral L3, L4 and L5 medial branch nerve radiofrequency. SURGEON: Elenita Mcknight MD TYPE OF ANESTHESIA: Monitored anesthesia care. ANESTHESIA ADMINISTERED BY: Cayetano Madrid MD COMPLICATIONS: None. SPECIMEN: None. DESCRIPTION OF PROCEDURE: After we had a discussion of the procedure with the patient including its risks, benefits, alternatives, outcome data, possibility of no effect or increased pain, and the patient consented to the procedure. He denied any recent infection, bleeding tendencies or being on anticoagulants, a decision was then made to proceed to the OR. The patient was placed on the fluoroscopy table in a prone position with 2 pillows underneath his abdomen. The back was prepped and draped in an usual sterile fashion and a sterile technique was adhered during the entire procedure. The L3, L4, and L5 medial branch nerves are located at the intersection of the superior articular process and the transverse process along with the sacral ala. The procedure was first performed on the right by turning the fluoroscopy towards the right at approximately 15 degrees. After appropriate identification of the three targets, the skin overlying the three areas was infiltrated with 1% lidocaine using a 25-gauge needle. Subsequently, a 22-gauge 3-1/2 inch Stimuplex needle was incrementally advanced under fluoroscopic guidance until tip of needle made bony contact with all three targeted areas. After satisfactory positioning of all three needles, sensory and motor testing were carried out to satisfactory results. Then each nerve was anesthetized with 1% lidocaine. Radiofrequency was then carried out at 80 degree Celsius for approximately 1-1/2 minutes. At the end of the procedure, each nerve was treated with a combination of 0.5% Marcaine and Depo-Medrol. The needle was then removed and the same exact procedure was performed on the contralateral left side using the same medications and techniques. At the end of the case, the patient's back was cleaned and dried, and bandages were applied. The patient was then transferred to recovery area in good condition without any signs of COMMUNITY MENTAL HEALTH SOCIAL WORKER toxicity or any neurological deficits. He will follow up in our office in approximately 2 to 4 weeks. Elenita Mcknight MD
== END 2017-07-24 14:25 | disposition home or self-care (01) ==
LOC: H.OPSURG 09:45
PROVIDERS: ATTEND Anesthesiology
DX: M47.816 Spondylosis without myelopathy or radiculopathy, lumbar region (principal)
CPT/HCPCS: 64635; 64636; J1040; J2250; J2270; J3010; J7120

== ENCOUNTER 2017-08-30 14:22 | Observation (INO) | payer MEDICARE, MEDICAID ==
[2017-08-30 14:22] VITALS: BMI 26.6
[2017-08-30] MEDS ORDERED: Sodium Chloride 0.9% 1,000 ML IV STA ×2 (14:57→17:00)
--- NOTE | 2017-08-30 15:05 | ED PDOC ---
Syncope/Near Syncope/Dizziness Time Seen by Provider: 08/30/17 14:49 Chief Complaint (Nursing): Syncope Chief Complaint (Provider): Syncope History Per: Patient History/Exam Limitations: no limitations Onset/Duration Of Symptoms: Sudden Onset Current Symptoms Are (Timing): Still Present Additional Complaint(s): 72 y/o male with a PMHx of HTN, brought by family after experiencing a syncopal episode witnessed by lasting approximately 10 minutes. Patient states he had dizziness prior to event but denies chest pain or palpitations. Patient complaining of fever, dysuria, and cough since yesterday. Denies vomiting or shortness of breath. PMD: Tio Anaya Past Medical History Reviewed: Historical Data, Nursing Documentation, Vital Signs Vital Signs: Last Vital Signs Temp 98.3 F 08/30/17 14:37 Pulse 84 08/30/17 14:37 Resp 18 08/30/17 14:37 BP 93/55 L 08/30/17 14:37 Pulse Ox 99 08/30/17 14:37 - Medical History PMH: Anxiety, Arthritis (OA B knees, s/p recent injections B knees (R knee last week)), Back Problems, COPD, HTN, Hypercholesterolemia, Migraine, Rheumatoid Arthritis, Sleep Apnea Denies: Asthma, CHF, HIV, Chronic Kidney Disease, Sexually Transmitted Disease - Surgical History Surgical History: Appendectomy, Hernia Repair Denies: CABG, Carotid Endarterectomy, Cholecystectomy, Coronary Stent, Endoscopy, Pacemaker, Tonsillectomy - Family History Family History: States: Unknown Family Hx - Immunization History Hx Tetanus Toxoid Vaccination: No Hx Influenza Vaccination: No Hx Pneumococcal Vaccination: No - Home Medications Home Medications: Ambulatory Orders Medication Instructions Recorded Clorazepate Dipotassium [Tranxene 15 mg PO BID 01/30/16 T-Tab] Nabumetone [Relafen] 750 mg PO BID 10/22/16 Tamsulosin [Flomax] 0.4 mg PO DAILY 10/22/16 Gabapentin 300 mg PO TID 12/10/16 Lisinopril [Zestril] 20 mg PO BID #30 tab 01/31/17 Carboxymethylcellulose Sodium 1 drop BOTHEYES QID 02/01/17 [Thera Tears] Acetaminophen/Butalbital/Caf 1 tab PO Q4 PRN #30 tab 02/02/17 [Fioricet] Aspirin 81 mg PO DAILY 04/28/17 traMADol [Ultram] 50 mg PO TID 04/28/17 - Allergies Allergies/Adverse Reactions: Allergies Allergy/AdvReac Type Severity Reaction Status Date / Time No Known Allergies Allergy Verified 04/28/17 08:59 Review of Systems ROS Statement: Except As Marked, All Systems Reviewed And Found Negative Constitutional: Positive for: Fever Cardiovascular: Negative for: Chest Pain, Palpitations Respiratory: Positive for: Cough. Negative for: Shortness of Breath Gastrointestinal: Negative for: Vomiting Genitourinary Male: Positive for: Dysuria Neurological: Positive for: Dizziness Physical Exam - Reviewed Nursing Documentation Reviewed: Yes Vital Signs Reviewed: Yes - Physical Exam Appears: Positive for: Non-toxic, No Acute Distress Head Exam: Positive for: ATRAUMATIC, NORMAL INSPECTION, NORMOCEPHALIC Skin: Positive for: Normal Color, Warm, Dry. Negative for: Rash Eye Exam: Positive for: EOMI, Normal appearance, PERRL Neck: Positive for: Normal, Painless ROM, Supple Cardiovascular/Chest: Positive for: Regular Rate, Rhythm. Negative for: Murmur Respiratory: Positive for: Normal Breath Sounds. Negative for: Respiratory Distress Gastrointestinal/Abdominal: Positive for: Normal Exam, Soft. Negative for: Tenderness Back: Positive for: Normal Inspection. Negative for: L CVA Tenderness, R CVA Tenderness, Vertebral Tenderness Extremity: Positive for: Normal ROM. Negative for: Pedal Edema, Deformity Neurologic/Psych: Positive for: Alert, Oriented (x3). Negative for: Motor/ Sensory Deficits - Laboratory Results Result Diagrams: 08/30/17 16:26 08/30/17 16:26 - ECG O2 Sat by Pulse Oximetry: 99 (RA) Pulse Ox Interpretation: Normal Medical Decision Making Medical Decision Makin:57 Impression: Pancreatitis, gastritis Plan: --CT head w/o contrast --EKG --CMP --Troponin I --CBC --CXR --1LNS --Blood culture --Urine culture --Urinalysis --Reevaluation ----- Scribe Attestation: Documented by Robi Hightower, acting as a scribe for Mike Holman MD. Provider Scribe Attestation: All medical record entries made by the Scribe were at my direction and personally dictated by me. I have reviewed the chart and agree that the record accurately reflects my personal performance of the history, physical exam, medical decision making, and the department course for this patient. I have also personally directed, reviewed, and agree with the discharge instructions and disposition. Disposition - Clinical Impression Clinical Impression: Syncope - Patient ED Disposition Is Patient to be Admitted: Yes - Disposition Disposition Time: 16:59 Condition: FAIR Forms: [employer] (Tajik) - Pt Status Changed To: Hospital Disposition Of: Observation - POA Present On Arrival: None
--- NOTE | 2017-08-30 16:00 | CT ---
PROCEDURE: CT HEAD WITHOUT CONTRAST. HISTORY: r/o bleed COMPARISON: Noncontrast head CT 02/01/2017. TECHNIQUE: Axial computed tomography images were obtained through the head/brain without intravenous contrast. Radiation dose: Total exam DLP = 913.25 mGy-cm. This CT exam was performed using one or more of the following dose reduction techniques: Automated exposure control, adjustment of the mA and/or kV according to patient size, and/or use of iterative reconstruction technique. FINDINGS: HEMORRHAGE: No intracranial hemorrhage. 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 Minimal diffuse cerebral atrophy is appreciated. There is no interval edema, mass effect or suspicious extra-axial fluid collection throughout. VENTRICLES: Unremarkable. No hydrocephalus. CALVARIUM: Unremarkable. PARANASAL SINUSES: Unremarkable as visualized. No significant inflammatory changes. MASTOID AIR CELLS: Unremarkable as visualized. No inflammatory changes. OTHER FINDINGS: None. IMPRESSION: Stable noncontrast chest CT demonstrating limited diffuse cerebral atrophy and a small chronic infarct right external capsule. Follow up CT or MRI can be performed if clinically warranted.
[2017-08-30 16:31] LABS: BASO % 0.4 % (0.0-2.0); EOS % 0.3 % (0.0-4.0); HEMOGLOBIN 12.9 g/dL (12.0-18.0); LYMPH # 1.1 K/uL (1.0-4.3); MEAN CELL VOLUME 94.6 fl (80.0-94.0); MEAN CORPUSCULAR HGB CONC 33.8 g/dL (33.0-37.0); MEAN PLATELET VOLUME 7.7 fl (7.2-11.7); MONO % 11.4 % (0.0-10.0); NEUT # 6.6 K/uL (1.8-7.0); NEUT % 75.9 % (50.0-75.0); RBC 4.03 Mil/uL (4.40-5.90); WHITE BLOOD COUNT 8.7 K/uL (4.8-10.8)
[2017-08-30 16:56] LABS: ALB/GLOB RATIO 1.2 (1.0-2.1); CALCIUM 8.9 mg/dL (8.4-10.2)
[2017-08-30 17:05] LABS: TROPONIN I 0.061 ng/mL (0.00-0.120)
--- NOTE | 2017-08-30 18:34 | RAD ---
HISTORY: cough COMPARISON: No prior. TECHNIQUE: Chest PA and lateral FINDINGS: LUNGS: No active pulmonary disease. PLEURA: No significant pleural effusion identified. No pneumothorax apparent. CARDIOVASCULAR: Normal. OSSEOUS STRUCTURES: No significant abnormalities. VISUALIZED UPPER ABDOMEN: Normal. OTHER FINDINGS: None. IMPRESSION: No interval acute cardiopulmonary disease appreciated.
[2017-08-30 19:52] LABS: SQUAMOUS EPITHIAL < 1 /hpf (0-5); URINE BACTERIA OCC (<OCC); URINE BILIRUBIN NEGATIVE (NEGATIVE); URINE BLOOD NEGATIVE (NEGATIVE); URINE CLARITY CLOUDY (Clear); URINE COLOR AMBER (YELLOW); URINE GLUCOSE (UA) NEG (Normal); URINE LEUKOCYTE ESTERASE TRACE Leu/uL (Negative); URINE PROTEIN NEGATIVE (NEGATIVE); URINE UROBILINOGEN 0.2-1.0 mg/dL (0.2-1.0)
[2017-08-30] MEDS: Benzocaine/Menthol (Cepacol) Lozenge PO PRN (22:20)
[2017-08-30] MEDS: Sodium Chloride 0.9% 1,000 ML IV SCH (22:27)
[2017-08-31] MEDS: Benzocaine/Menthol (Cepacol) Lozenge PO PRN ×3 (00:23→22:10)
[2017-08-31 05:40] LABS: BASO % 0.3 % (0.0-2.0); EOS # 0.1 K/uL (0.0-0.7); EOS % 0.8 % (0.0-4.0); LYMPH # 1.6 K/uL (1.0-4.3); MEAN CELL VOLUME 94.4 fl (80.0-94.0); MEAN CORPUSCULAR HEMOGLOBIN 32.6 pg (27.0-31.0); MEAN CORPUSCULAR HGB CONC 34.6 g/dL (33.0-37.0); MEAN PLATELET VOLUME 8.1 fl (7.2-11.7); MONO % 10.4 % (0.0-10.0); NEUT % 72.5 % (50.0-75.0); RBC 3.98 Mil/uL (4.40-5.90); RED CELL DISTRIBUTION WIDTH 14.1 % (11.5-14.5); WHITE BLOOD COUNT 9.7 K/uL (4.8-10.8)
[2017-08-31] MEDS: Sodium Chloride 0.9% 1,000 ML IV SCH (05:48)
[2017-08-31 06:21] LABS: ALB/GLOB RATIO 1.2 (1.0-2.1); ALBUMIN 3.9 g/dL (3.5-5.0); ALT/SGPT 77 U/L (21-72); AST/SGOT 80 U/L (17-59); BLOOD UREA NITROGEN 20 mg/dl (9-20); CALCIUM 8.1 mg/dL (8.4-10.2); GFR AFRICAN-AMERICAN > 60; GFR NON-AFRICAN AMERICAN > 60
--- NOTE | 2017-08-31 07:22 | CP.PCM.HP ---
History of Present Illness - History of Present Illness History of Present Illness: pt admitted for syncopal episode. per pt was going from kitchen to living room and passed out. per pt never had loc. c/o st, headache. no f/c, n/v/d at present but had fever overnight. all bw and imaging noted. elev lft noted. Present on Admission - Present on Admission Any Indicators Present on Admission: No Review of Systems - Constitutional Constitutional: As Per HPI, Fever - EENT Nose/Mouth/Throat: As Per HPI, Sore Throat - Neurological Neurological: As Per HPI, Syncope Past Patient History - Infectious Disease Hx of Infectious Diseases: None - Past Medical History & Family History Past Medical History?: Yes - Past Social History Smoking Status: Never Smoked - CARDIAC Hx Cardiac Disorders: Yes Hx Hypercholesterolemia: Yes Hx Hypertension: Yes - PULMONARY Hx Respiratory Disorders: Yes Hx Chronic Obstructive Pulmonary Disease (COPD): Yes Hx Sleep Apnea: Yes - NEUROLOGICAL Hx Neurological Disorder: Yes Hx Migraine: Yes - HEENT Hx HEENT Problems: No - RENAL Hx Chronic Kidney Disease: No - ENDOCRINE/METABOLIC Hx Endocrine Disorders: No - HEMATOLOGICAL/ONCOLOGICAL Hx Blood Disorders: No - INTEGUMENTARY Hx Dermatological Problems: No - MUSCULOSKELETAL/RHEUMATOLOGICAL Hx Musculoskeletal Disorders: Yes Hx Arthritis: Yes Hx Back Pain: Yes Hx Falls: No Hx Osteoarthritis: Yes (MALU KNEE) - GASTROINTESTINAL Hx Gastrointestinal Disorders: No - GENITOURINARY/GYNECOLOGICAL Hx Genitourinary Disorders: Yes Hx Prostate Problems: Yes - PSYCHIATRIC Hx Psychophysiologic Disorder: Yes Hx Anxiety: Yes Hx Substance Use: No - SURGICAL HISTORY Hx Surgeries: Yes Hx Appendectomy: Yes Hx Herniorrhaphy: Yes - ANESTHESIA Hx Anesthesia: Yes Hx Anesthesia Reactions: No Hx Malignant Hyperthermia: No Meds Allergies/Adverse Reactions: Allergies Allergy/AdvReac Type Severity Reaction Status Date / Time No Known Allergies Allergy Verified 04/28/17 08:59 Physical Exam - Constitutional Appears: Well, Non-toxic, No Acute Distress - Head Exam Head Exam: ATRAUMATIC, NORMAL INSPECTION, NORMOCEPHALIC - Eye Exam Eye Exam: EOMI, Normal appearance, PERRL Pupil Exam: NORMAL ACCOMODATION, PERRL - ENT Exam ENT Exam: Mucous Membranes Moist, Normal Exam Additional comments: throat erythema, no exudate - Neck Exam Neck exam: Positive for: Normal Inspection - Respiratory Exam Respiratory Exam: Clear to Auscultation Bilateral, NORMAL BREATHING PATTERN - Cardiovascular Exam Cardiovascular Exam: REGULAR RHYTHM, RRR, +S1, +S2 - GI/Abdominal Exam GI & Abdominal Exam: Normal Bowel Sounds, Soft. absent: Tenderness - Extremities Exam Extremities exam: Positive for: full ROM, normal capillary refill, normal inspection, pedal pulses present - Back Exam Back exam: NORMAL INSPECTION - Neurological Exam Neurological exam: Alert, CN II-XII Intact, Normal Gait, Oriented x3, Reflexes Normal - Psychiatric Exam Psychiatric exam: Normal Affect, Normal Mood - Skin Skin Exam: Dry, Intact, Normal Color, Warm Results - Vital Signs Recent Vital Signs: Last Vital Signs Temp 99.7 F H 08/31/17 05:10 Pulse 95 H 08/31/17 05:10 Resp 18 08/31/17 05:10 BP 148/71 08/31/17 05:10 Pulse Ox 96 08/31/17 05:10 - Labs Result Diagrams: 08/31/17 05:00 08/31/17 05:00 Labs: Laboratory Results - last 24 hr 08/30/17 08/30/17 08/30/17 15:01 16:26 16:26 WBC 8.7 RBC 4.03 L Hgb 12.9 Hct 38.1 MCV 94.6 H MCH 32.0 H MCHC 33.8 RDW 14.0 Plt Count 229 MPV 7.7 Neut % (Auto) 75.9 H Lymph % (Auto) 12.0 L [place] % (Auto) 11.4 H Eos % (Auto) 0.3 Baso % (Auto) 0.4 Neut # (Auto) 6.6 Lymph # (Auto) 1.1 [place] # (Auto) 1.0 H Eos # (Auto) 0.0 Baso # (Auto) 0.0 Sodium 137 Potassium 4.3 Chloride 97 L Carbon Dioxide 27 Anion Gap 17 BUN 25 H Creatinine 1.5 Est GFR ( Amer) 56 Est GFR (Non-Af Amer) 46 POC Glucose (mg/dL) 128 H Random Glucose 123 H Calcium 8.9 Total Bilirubin 0.7 AST 51 ALT 68 Alkaline Phosphatase 128 H D Troponin I 0.0610 Total Protein 7.4 Albumin 4.0 Globulin 3.4 Albumin/Globulin Ratio 1.2 Urine Color Urine Clarity Urine pH Ur Specific [place] Urine Protein Urine Glucose (UA) Urine Ketones Urine Blood Urine Nitrate Urine Bilirubin Urine Urobilinogen Ur Leukocyte Esterase Urine RBC (Auto) Urine Microscopic WBC Ur Squamous Epith Cells Urine Bacteria Hyaline Casts 08/30/17 08/31/17 08/31/17 19:35 05:00 05:00 WBC 9.7 RBC 3.98 L Hgb 13.0 Hct 37.6 MCV 94.4 H MCH 32.6 H MCHC 34.6 RDW 14.1 Plt Count 221 MPV 8.1 Neut % (Auto) 72.5 Lymph % (Auto) 16.0 L [place] % (Auto) 10.4 H Eos % (Auto) 0.8 Baso % (Auto) 0.3 Neut # (Auto) 7.0 Lymph # (Auto) 1.6 [place] # (Auto) 1.0 H Eos # (Auto) 0.1 Baso # (Auto) 0.0 Sodium 138 Potassium 3.8 Chloride 99 Carbon Dioxide 26 Anion Gap 17 BUN 20 Creatinine 1.0 Est GFR ( Amer) > 60 Est GFR (Non-Af Amer) > 60 POC Glucose (mg/dL) Random Glucose 123 H Calcium 8.1 L Total Bilirubin 0.5 AST 80 H D ALT 77 H Alkaline Phosphatase 135 H Troponin I 0.0770 Total Protein 7.2 Albumin 3.9 Globulin 3.3 Albumin/Globulin Ratio 1.2 Urine Color Genesis Urine Clarity Cloudy Urine pH 5.0 Ur Specific [place] 1.023 Urine Protein Negative Urine Glucose (UA) Neg Urine Ketones Negative Urine Blood Negative Urine Nitrate Negative Urine Bilirubin Negative Urine Urobilinogen 0.2-1.0 Ur Leukocyte Esterase Trace Urine RBC (Auto) 3 Urine Microscopic WBC 6 H Ur Squamous Epith Cells < 1 Urine Bacteria Occ H Hyaline Casts 11-20 H Assessment & Plan (1) Sore throat Assessment and Plan: throat c/s cepeacol, tylenol anbx prn Status: Acute (2) Elevated LFTs Assessment and Plan: hep panel, liver us h/o hep b noted Status: Acute (3) Syncope Assessment and Plan: tele obs bw noted. ct head noted neuro consult Status: Acute Decision To Admit - Pt Status Changed To: Hospital Disposition Of: Observation - . Bed Request Type: Telemetry Admitting Physician: Michele Abebe
[2017-08-31] MEDS ORDERED: GABAPENTIN 300 MG PO SCH (09:00)
[2017-08-31] MEDS: Artificial Tears Opht Soln OU SCH ×5 (10:18→22:07)
--- NOTE | 2017-08-31 11:40 | CARD ---
APPROVED REPORT EKG Measurement Heart [id number] <Conclusion> Normal sinus rhythm Left bundle branch block Abnormal ECG
--- NOTE | 2017-08-31 12:30 | CP.PCM.PCO ---
Physician Communication Note - Physician Communication Note Physician Communication Note: will actually increase lyrica to 75 mg po bid instead of gabapentin.
[2017-08-31 12:31] LABS: HEPATITIS B SURFACE AG Negative (NEGATIVE)
[2017-08-31 12:37] LABS: HEPATITIS A IGM NEGATIVE (NEGATIVE); HEPATITIS B CORE AB NEGATIVE (NEGATIVE)
[2017-08-31 12:49] LABS: HEPATITIS C ANTIBODY NEGATIVE (NEGATIVE)
--- NOTE | 2017-08-31 14:12 | CON ---
DATE: 08/31/2017 NEUROLOGY CONSULTATION CHIEF COMPLAINT: Syncope. HISTORY OF PRESENT ILLNESS: This is a 72-year-old man who is well known to my practice with a history of hypertension; chronic back pain; history of chronic tension headache, especially that is first on the right temporal/occiput area with osteoarthritis of his knees; anxiety, on clorazepate; insomnia, on Ambien who came in after having a syncopal episode witnessed by that lasted approximately 10 minutes. The patient said he was dizzy prior to the event. He did have low systolic and diastolic blood pressure of 92/55. The patient does overuse tramadol for chronic pain. In addition, he takes gabapentin and Cymbalta. He is on gabapentin 300 mg p.o. t.i.d. He is also taking Ambien at night daily. He has not seen a primary care doctor in a while. His CAT scan of the head showed no acute intracranial abnormalities. He was mildly dehydrated. REVIEW OF SYSTEMS: A 14-point review of system is negative except for the HPI. PAST MEDICAL HISTORY: As above. ALLERGIES: NO KNOWN DRUG ALLERGIES. SOCIAL HISTORY: No illicit drug abuse, smoking, or ETOH abuse. FAMILY HISTORY: Noncontributory. MEDICATIONS: Reviewed by nurse per reconciliation sheet. PHYSICAL EXAMINATION: VITAL SIGNS: Temperature of 98.3, pulse rate of 84, blood pressure 142/62, respiratory rate of 20, and oxygen saturation of 95% on room air. GENERAL: The patient is sitting up in bed, in no acute distress. HEENT: Head is atraumatic and normocephalic. PERRLA. Extraocular muscles intact. NECK: Supple. No JVD. No adenopathy noted. LUNGS: Clear to auscultation. No adventitious sounds. HEART: S1 and S2. Normal rate and rhythm. No murmur, rubs, or gallops. ABDOMEN: Soft, nontender, nondistended. Bowel sounds present. EXTREMITIES: No clubbing. No cyanosis. Peripheral pulses 2+ felt bilaterally. NEUROLOGIC: The patient is alert and oriented to person, place, month, and year. Speech is fluent without any errors. Cranial nerves II through XII intact. Motor exam; moves all extremities equally. No pronator drift seen. Sensory exam: Light touch, pinprick, proprioception, and vibration intact. DTRs are 2+ throughout. Coordination and [id number] intact. Gait is normal. LABORATORY DATA: Sodium is 138, potassium 3.8, chloride 99, carbon dioxide 26, BUN of 20, creatinine of 1, random glucose of 123, elevated ALT of 77, AST of 80, alkaline phosphatase of 135. Detox is positive for barbiturates and benzodiazepines. ASSESSMENT AND PLAN: This is a 72-year-old man with past medical history of osteoarthritis of knees, hypertension, chronic back pain, history of chronic tension headaches which starts with the right temporal areas and goes to the occiput, along with insomnia, on Ambien. He also has a history of anxiety, on clorazepate daily. He came with a syncopal episode. He was found to be dehydrated and low systolic and diastolic blood pressures. Syncope is most likely vasovagal in nature, unlike his seizure. RECOMMENDATIONS: At this time, we would recommend: 1. To continue with the gabapentin 300 mg p.o. t.i.d. with p.r.n. use of Fioricet. I told him not to overuse the Fioricet for acute onset of headache. 2. Continue with his clorazepate 15 mg p.o. t.i.d. 3. Advised better sleep hygiene. 4. Requires adequate hydration throughout the day. 5. Try not to overuse his tramadol. We have given him very limited supply daily p.r.n. 6. He is clinically stable from my standpoint. He will follow up with me as an outpatient. 7. Get orthostatic vital signs. Thank you for this consult. Tio Anaya MD
--- NOTE | 2017-08-31 18:10 | US ---
HISTORY: Elevated LFTs. Fever COMPARISON: 05/26/2014 TECHNIQUE: Standard protocol for this study/examination. FINDINGS: LIVER: Measures 15.4 cm in length. Patent portal vein. Portal venous flow: Hepatopetal. Unremarkable echogenicity of the liver parenchyma. No mass. No intrahepatic bile duct dilatation. GALLBLADDER: Unremarkable. No gallstones. COMMON BILE DUCT: Measures 2.4 mm. No stones. No dilatation. PANCREAS: Unremarkable as visualized. No mass. No ductal dilatation. RIGHT KIDNEY: Measures 5.3 x 10.6 cm in length. Normal echogenicity. No calculus, mass, or hydronephrosis. AORTA: No aneurysmal dilatation. IVC: Unremarkable. OTHER FINDINGS: None . IMPRESSION: No significant or acute findings to account for/ related to the clinical presentation. No significant interval change compared to the prior examination(s).
[2017-09-01 00:23] VITALS: RESP 18
[2017-09-01 05:41] LABS: BASO # 0.1 K/uL (0.0-0.2); BASO % 0.4 % (0.0-2.0); EOS # 0.1 K/uL (0.0-0.7); EOS % 0.8 % (0.0-4.0); HEMOGLOBIN 12.7 g/dL (12.0-18.0); LYMPH # 2.1 K/uL (1.0-4.3); LYMPH % 15.6 % (20.0-40.0); MEAN CELL VOLUME 94.7 fl (80.0-94.0); MEAN CORPUSCULAR HEMOGLOBIN 31.7 pg (27.0-31.0); MEAN CORPUSCULAR HGB CONC 33.5 g/dL (33.0-37.0); MEAN PLATELET VOLUME 8.1 fl (7.2-11.7); MONO # 1.1 K/uL (0.0-0.8); NEUT # 9.9 K/uL (1.8-7.0); NEUT % 75.2 % (50.0-75.0); NRBC % 0.1 % (0.0-0.0); RED CELL DISTRIBUTION WIDTH 14.2 % (11.5-14.5); WHITE BLOOD COUNT 13.1 K/uL (4.8-10.8)
[2017-09-01 06:08] LABS: ALB/GLOB RATIO 1.2 (1.0-2.1); ALBUMIN 3.7 g/dL (3.5-5.0); ALT/SGPT 167 U/L (21-72); AST/SGOT 140 U/L (17-59); BLOOD UREA NITROGEN 12 mg/dl (9-20); CALCIUM 8.4 mg/dL (8.4-10.2); GFR AFRICAN-AMERICAN > 60; GFR NON-AFRICAN AMERICAN > 60
--- NOTE | 2017-09-01 07:53 | CP.PCM.PN ---
Subjective - Date & Time of Evaluation Date of Evaluation: 09/01/17 Time of Evaluation: 07:53 - Subjective Subjective: pt soing well still with mild cough congestion but no fcnvd lft elevated further today hep panel and abd us normal pt asking to go home all c/s pending. wbc [address] as well c/s pending Objective - Vital Signs/Intake and Output Vital Signs (last 24 hours): Temp Pulse Resp BP Pulse Ox 98.6 F 75 18 132/74 97 09/01/17 05:00 09/01/17 05:00 09/01/17 05:00 09/01/17 05:00 09/01/17 05:00 - Medications Medications: Current Medications Acetaminophen (Tylenol 325mg Tab) 650 mg PO Q4 PRN PRN Reason: Fever >100.4 F Last Admin: 09/01/17 01:37 Dose: 650 mg Artificial Tears (Artificial Tears) 1 drop OU QID [facility] Last Admin: 08/31/17 22:07 Dose: 1 drop Benzocaine/Menthol (Cepacol Sore Throat) 1 gamaliel PO Q2 PRN PRN Reason: Sore Throat Last Admin: 08/31/17 22:10 Dose: 1 gamaliel Clorazepate Dipotassium (Tranxene-T) 15 mg PO BID [facility] Last Admin: 08/31/17 18:35 Dose: 15 mg Gabapentin (Neurontin) 300 mg PO TID [facility] Last Admin: 08/31/17 18:35 Dose: 300 mg Lisinopril (Zestril) 20 mg PO BID [facility] Last Admin: 08/31/17 18:32 Dose: 20 mg Nabumetone (Relafen) 750 mg PO BID [facility] Last Admin: 08/31/17 18:35 Dose: 750 mg Tamsulosin HCl (Flomax) 0.4 mg PO DAILY [facility] Last Admin: 08/31/17 09:10 Dose: 0.4 mg Tramadol HCl (Ultram) 50 mg PO TID [facility] Last Admin: 08/31/17 18:34 Dose: 50 mg Zolpidem Tartrate (Ambien) 5 mg PO HS PRN PRN Reason: Insomnia Last Admin: 08/31/17 22:07 Dose: 5 mg - Labs Labs: 09/01/17 04:20 09/01/17 04:20 - Constitutional Appears: Well, Non-toxic, No Acute Distress - Head Exam Head Exam: ATRAUMATIC, NORMAL INSPECTION, NORMOCEPHALIC - Eye Exam Eye Exam: EOMI, Normal appearance, PERRL Pupil Exam: NORMAL ACCOMODATION, PERRL - ENT Exam ENT Exam: Mucous Membranes Moist, Normal Exam - Neck Exam Neck Exam: Full ROM, Normal Inspection. absent: Lymphadenopathy - Respiratory Exam Respiratory Exam: Clear to Ausculation Bilateral, NORMAL BREATHING PATTERN - Cardiovascular Exam Cardiovascular Exam: REGULAR RHYTHM, RRR, +S1, +S2. absent: Murmur - GI/Abdominal Exam GI & Abdominal Exam: Soft, Normal Bowel Sounds. absent: Tenderness - Extremities Exam Extremities Exam: Full ROM, Normal Capillary Refill, Normal Inspection. absent : Joint Swelling, Pedal Edema - Back Exam Back Exam: NORMAL INSPECTION - Neurological Exam Neurological Exam: Alert, Awake, CN II-XII Intact, Normal Gait, Oriented x3 - Psychiatric Exam Psychiatric exam: Normal Affect, Normal Mood - Skin Skin Exam: Dry, Intact, Normal Color, Warm Assessment and Plan (1) Sore throat Status: Acute (2) Elevated LFTs Status: Acute (3) Syncope Status: Acute - Assessment and Plan (Free Text) Assessment: (1) Sore throat Assessment and Plan: throat c/s cepeacol, tylenol anbx prn Status: Acute (2) Elevated LFTs Assessment and Plan: hep panel-negative, liver us-negative h/o hep b noted Status: Acute (3) Syncope Assessment and Plan: tele obs bw noted. ct head noted neuro consult cleared by neuro for dc Status: Acute [id number] c/s, ivf, ?? need to start anbx-?? source
[2017-09-01] MEDS: Benzocaine/Menthol (Cepacol) Lozenge PO PRN (08:55)
[2017-09-01] MEDS: Artificial Tears Opht Soln OU SCH ×2 (09:00→13:12)
[2017-09-01] MEDS ORDERED: Azithromycin 500 MG in Sodium Chloride 0.9% 250 ML IVPB STA (12:31)
[2017-09-01 13:40] VITALS: BP 122/66; PULSE 82; TEMP 98.9; O2SAT 94
--- NOTE | 2017-09-01 17:19 | CP.PCM.DIS ---
Provider - Provider Date of Admission: 08/30/17 17:07 Attending physician: Micehle Abebe MD Time Spent in preparation of Discharge (in minutes): 20 Diagnosis - Discharge Diagnosis (1) Sore throat Status: Acute (2) Elevated LFTs Status: Acute (3) Syncope Status: Acute Hospital Course - Lab Results Lab Results: Micro Results 08/31/17 11:27 Throat Group A Strep Throat Culture - Final NO BETA STREP GROUP A ISOLATED. 08/30/17 19:35 Urine,Clean Catch Urine Culture - Final No Growth (<1,000 CFU/ML) 08/30/17 17:43 Blood-Venous Blood Culture - Preliminary NO GROWTH AFTER 24 HOURS Most Recent Lab Values WBC 13.1 K/uL (4.8-10.8) H 09/01/17 04:20 RBC 4.00 Mil/uL (4.40-5.90) L 09/01/17 04:20 Hgb 12.7 g/dL (12.0-18.0) 09/01/17 04:20 Hct 37.8 % (35.0-51.0) 09/01/17 04:20 MCV 94.7 fl (80.0-94.0) H 09/01/17 04:20 MCH 31.7 pg (27.0-31.0) H 09/01/17 04:20 MCHC 33.5 g/dL (33.0-37.0) 09/01/17 04:20 RDW 14.2 % (11.5-14.5) 09/01/17 04:20 Plt Count 202 K/uL (130-400) 09/01/17 04:20 MPV 8.1 fl (7.2-11.7) 09/01/17 04:20 Neut % (Auto) 75.2 % (50.0-75.0) H 09/01/17 04:20 Lymph % (Auto) 15.6 % (20.0-40.0) L 09/01/17 04:20 Swift % (Auto) 8.0 % (0.0-10.0) 09/01/17 04:20 Eos % (Auto) 0.8 % (0.0-4.0) 09/01/17 04:20 Baso % (Auto) 0.4 % (0.0-2.0) 09/01/17 04:20 Neut # (Auto) 9.9 K/uL (1.8-7.0) H 09/01/17 04:20 Lymph # (Auto) 2.1 K/uL (1.0-4.3) 09/01/17 04:20 Swift # (Auto) 1.1 K/uL (0.0-0.8) H 09/01/17 04:20 Eos # (Auto) 0.1 K/uL (0.0-0.7) 09/01/17 04:20 Baso # (Auto) 0.1 K/uL (0.0-0.2) 09/01/17 04:20 Sodium 139 mmol/l (132-148) 09/01/17 04:20 Potassium 3.5 MMOL/L (3.6-5.0) L 09/01/17 04:20 Chloride 101 mmol/L (98-107) 09/01/17 04:20 Carbon Dioxide 26 mmol/L (22-30) 09/01/17 04:20 Anion Gap 16 (10-20) 09/01/17 04:20 BUN 12 mg/dl (9-20) 09/01/17 04:20 Creatinine 0.7 mg/dl (0.8-1.5) L 09/01/17 04:20 Est GFR ( Amer) > 60 09/01/17 04:20 Est GFR (Non-Af Amer) > 60 09/01/17 04:20 POC Glucose (mg/dL) 128 mg/dL (65-110) H 08/30/17 15:01 Random Glucose 113 mg/dL (75-110) H 09/01/17 04:20 Calcium 8.4 mg/dL (8.4-10.2) 09/01/17 04:20 Total Bilirubin 0.6 mg/dl (0.2-1.3) 09/01/17 04:20 AST 140 U/L (17-59) H D 09/01/17 04:20 ALT 167 U/L (21-72) H D 09/01/17 04:20 Alkaline Phosphatase 165 U/L (38-126) H D 09/01/17 04:20 Troponin I 0.0770 ng/mL (0.00-0.120) 08/31/17 05:00 Total Protein 6.9 G/DL (6.3-8.2) 09/01/17 04:20 Albumin 3.7 g/dL (3.5-5.0) 09/01/17 04:20 Globulin 3.2 gm/dL (2.2-3.9) 09/01/17 04:20 Albumin/Globulin Ratio 1.2 (1.0-2.1) 09/01/17 04:20 Urine Color Genesis (YELLOW) 08/30/17 19:35 Urine Clarity Cloudy (Clear) 08/30/17 19:35 Urine pH 5.0 (5.0-8.0) 08/30/17 19:35 Ur Specific [place] 1.023 (1.003-1.030) 08/30/17 19:35 Urine Protein Negative mg/dL (NEGATIVE) 08/30/17 19:35 Urine Glucose (UA) Neg mg/dL (Normal) 08/30/17 19:35 Urine Ketones Negative mg/dL (NEGATIVE) 08/30/17 19:35 Urine Blood Negative (NEGATIVE) 08/30/17 19:35 Urine Nitrate Negative (NEGATIVE) 08/30/17 19:35 Urine Bilirubin Negative (NEGATIVE) 08/30/17 19:35 Urine Urobilinogen 0.2-1.0 mg/dL (0.2-1.0) 08/30/17 19:35 Ur Leukocyte Esterase Trace [place]/uL (Negative) 08/30/17 19:35 Urine RBC (Auto) 3 /hpf (0-3) 08/30/17 19:35 Urine Microscopic WBC 6 /hpf (0-5) H 08/30/17 19:35 Ur Squamous Epith Cells < 1 /hpf (0-5) 08/30/17 19:35 Urine Bacteria Occ (<OCC) H 08/30/17 19:35 Hyaline Casts 11-20 /hpf (0-2) H 08/30/17 19:35 Hepatitis A IgM Ab Negative (NEGATIVE) 08/31/17 08:15 Hep Bs Antigen Negative (NEGATIVE) 08/31/17 08:15 Hep B Core IgM Ab Negative (NEGATIVE) 08/31/17 08:15 Hepatitis C Antibody Negative (NEGATIVE) 08/31/17 08:15 - Hospital Course Hospital Course: neuro, gi all c/s negative zithromax x 1 dose, home w/ po f/u rmg in am, rted prn, med spe rmedrec outpt monitoring of lft/wbc Discharge Exam - Head Exam Head Exam: ATRAUMATIC, NORMAL INSPECTION, NORMOCEPHALIC Discharge Plan - Discharge Medications Prescriptions: Azithromycin [Zithromax Tri-Levi] 500 mg PO DAILY #5 tablet - Follow Up Plan Condition: FAIR Disposition: HOME/ ROUTINE Instructions: Sore Throat, Adult (DC), Syncope (Fainting) (DC) Additional Instructions: final dx-uri, leukocytosis, syncope, elev lft cleared by gi and neuro zithromax x 1 dose, home w/ po f/u rmg in am, rted prn, med spe rmedrec outpt monitoring of lft/wbc Referrals: Tio Anaya MD [Staff Provider] -
--- NOTE | 2017-09-02 00:21 | CON ---
DATE: 09/01/2017 REFERRING DOCTOR: Dr. Galdamez. REASON FOR CONSULTATION: Elevated LFTs. HISTORY OF PRESENT ILLNESS: This is a very pleasant 72-year-old man, essentially being worked up for vasovagal episode, and GI was called because he has mild elevation of LFTs. The patient is a social drinker. Otherwise, no GI complaints. No weight loss. No heartburn. No reflux. Currently, tolerating diet, doing well, in no apparent distress. PAST MEDICAL HISTORY: As above. PAST SURGICAL HISTORY: As above. MEDICATIONS: Have been reviewed. REVIEW OF SYSTEMS: All other systems have been reviewed and negative apart from the HPI. PHYSICAL EXAMINATION: VITAL SIGNS: Here in the hospital, grossly unremarkable. GENERAL: A pleasant elderly-appearing male, lying in bed comfortably, and in no apparent distress. HEENT: Head, normocephalic and atraumatic. Eyes; pupils are equally reactive to light bilaterally. No conjunctival pallor or icterus. NECK: Supple. Normal range of motion. No lymphadenopathy appreciated. LUNGS: Coarse breath sounds bilaterally. HEART: S1 and S2, regular rate and rhythm. No murmurs appreciated. ABDOMEN: Soft and nontender. Bowel sounds present. No rebound. No guarding. RECTAL: Deferred. EXTREMITIES: Pulses present bilaterally. SKIN: Warm, dry, and intact. NEUROLOGIC: Alert and oriented x3. LABORATORY DATA: All labs and other radiology have been reviewed. WBC is 13.1, hemoglobin of 12.7, and hematocrit 37.8. AST and ALT 140 and 127 with alkaline phosphatase 165, bilirubin is normal. Hepatitis panel negative. Ultrasound negative. ASSESSMENT AND PLAN: This is a 72-year-old man with elevated liver function tests. From GI standpoint, this is all medication related related. From GI standpoint, he can be discharged to home safely to follow up in the outpatient setting with labs in a week. Thank you for the consult. Oral Villatoro MD/ PhD cc: Dr. Galdamez
== END 2017-09-01 17:23 | disposition home or self-care (01) ==
LOC: H.ER 14:22 → H.ERHOLD 17:07 → H.TEL 21:10
PROVIDERS: ADMIT Family Medicine; ATTEND Family Medicine
DX: R55 Syncope and collapse (principal); J02.9 Acute pharyngitis, unspecified; E86.0 Dehydration; E78.00 Pure hypercholesterolemia, unspecified; G47.30 Sleep apnea, unspecified; G89.29 Other chronic pain; I10 Essential (primary) hypertension; J44.9 Chronic obstructive pulmonary disease, unspecified; M06.9 Rheumatoid arthritis, unspecified; M17.0 Bilateral primary osteoarthritis of knee; Z79.1 Long term (current) use of non-steroidal anti-inflammatories (NSAID); Z79.82 Long term (current) use of aspirin; Z79.899 Other long term (current) drug therapy; Z90.49 Acquired absence of other specified parts of digestive tract; F41.9 Anxiety disorder, unspecified; F45.9 Somatoform disorder, unspecified; G43.909 Migraine, unspecified, not intractable, without status migrainosus; G44.229 Chronic tension-type headache, not intractable; G47.00 Insomnia, unspecified; R79.89 Other specified abnormal findings of blood chemistry
CPT/HCPCS: 36415; 70450; 71046; 76705; 80053; 80074; 81003; 82948; 84484; 85025; 87040; 87070; 87086; 93005; 99285; G0378; J0456; J7030

== ENCOUNTER 2017-10-13 10:07 | Day surgery (SDC) | payer MEDICARE, MEDICAID ==
[2017-10-13] MEDS ORDERED: Lactated Ringer's 500 ML IV ONE (11:00)
[2017-10-13 11:07] VITALS: BMI 24.4
[2017-10-13] MEDS ORDERED: Bupivacaine HCl 0.5% PF (30 ml) Inj ONE (11:16)
[2017-10-13] MEDS ORDERED: methylPREDNISolone Depo 80 mg/ml Inj ONE (11:16)
[2017-10-13] MEDS ORDERED: Lidocaine 2% MPF (5 ml) Inj ONE (11:16)
[2017-10-13] MEDS ORDERED: Midazolam 2 MG/2 ML VIAL ONE (11:29)
[2017-10-13 12:57] VITALS: O2SAT 98
[2017-10-13 14:03] VITALS: PULSE 60; RESP 18
[2017-10-13 16:14] VITALS: BP 128/78; TEMP 98
--- NOTE | 2017-10-13 23:58 | OP ---
Copied To: Elenita Mcknight MD Attending MD: Elenita Mcknight MD PROCEDURE DATE: 10/13/2017 PREOPERATIVE DIAGNOSIS: Right knee osteoarthritis. POSTOPERATIVE DIAGNOSIS: Right knee osteoarthritis. PROCEDURE: Right genicular nerve block x3. SURGEON: Elenita Mcknight MD TYPE OF ANESTHESIA: Monitored anesthesia care. ANESTHESIA ADMINISTERED BY: Cayetano Madrid MD COMPLICATIONS: None. SPECIMENS: None. DESCRIPTION OF PROCEDURE: After we had discussion of the procedure with the patient, including his risks, benefits, alternatives, outcome data, possibility of no effect or increased pain, the patient consented to the procedure. He denied any recent infections, bleeding tendencies, or being on anticoagulants, a decision was then made to proceed to the OR. The patient was placed on a fluoroscopy table in a supine position with two pillows underneath the right knee. The knee was prepped and draped in the usual sterile fashion and sterile technique was adhered to during the entire procedure. The genicular nerves are located at the border of the femoral condyle and the femur shaft on both the medial and lateral aspect as well as the border of the tibial condyle and tibial shaft on the medial side. The skin overlying the 3 above target areas were then infiltrated with 1% lidocaine using 25-gauge needle. Subsequently, a 25-gauge 3-1/2-inch spinal needle was then incrementally advanced under fluoroscopic guidance until the needle made body contact with all 3 target areas. The needle was then worked slightly laterally and anteriorly. A final check on the lateral position was used to confirm the needle to be at the mid point of the bony shaft. After appropriate placement of all 3 needles, approximately 4 mL of 0.5% Marcaine and Depo-Medrol mixture was injected. The needle was then removed and the patient's knee was then cleaned and dried and bandages were applied. The patient was then transferred to recovery area in good conditions without any signs of BINDER CUTTER toxicity or any neurological deficit. He will have to follow in our office in approximately 2 to 4 weeks. Elenita Mcknight MD
--- NOTE | 2017-10-14 15:31 | RAD ---
Date of service: 10/13/2017 PROCEDURE: Fluoroscopy up to 1 hr. HISTORY: PAIN MANAGEMENT COMPARISON: None TECHNIQUE: Standard protocol for this study/examination. FINDINGS: Total exam DLP: 1.06 (mGy) IMPRESSION: Total fluoroscopic time (continuous mode) utilized during the procedure 25.7 seconds
== END 2017-10-13 16:45 | disposition home or self-care (01) ==
LOC: H.OPSURG 10:07
PROVIDERS: ATTEND Anesthesiology
DX: M17.11 Unilateral primary osteoarthritis, right knee (principal); G89.29 Other chronic pain
CPT/HCPCS: 64447; 77003; J1040; J2250; J3010; J7120

== ENCOUNTER 2018-01-29 11:08 | Inpatient (IN) | payer MEDICARE, MEDICAID ==
[2018-01-29 11:08] VITALS: BMI 25.8
[2018-01-29] MEDS ORDERED: Iohexol 240 (50 ml) PO ONE (12:55)
[2018-01-29] MEDS ORDERED: Sodium Chloride 0.9% 1,000 ML IV SCH (13:00)
[2018-01-29] MEDS ORDERED: Iohexol 240 (50 ml) ONE (13:08)
[2018-01-29 13:41] LABS: BASO % 0.4 % (0.0-2.0); EOS # 0.2 K/uL (0.0-0.7); EOS % 2.1 % (0.0-4.0); HEMOGLOBIN 13.8 g/dL (12.0-18.0); LYMPH # 1.5 K/uL (1.0-4.3); LYMPH % 14.4 % (20.0-40.0); MEAN CELL VOLUME 92.7 fl (80.0-94.0); MEAN CORPUSCULAR HGB CONC 33.5 g/dL (33.0-37.0); MEAN PLATELET VOLUME 8.4 fl (7.2-11.7); MONO # 0.9 K/uL (0.0-0.8); NEUT # 8.1 K/uL (1.8-7.0); NEUT % 75.1 % (50.0-75.0); NRBC % 0.1 % (0.0-0.0); RBC 4.45 Mil/uL (4.40-5.90); RED CELL DISTRIBUTION WIDTH 14.1 % (11.5-14.5); WHITE BLOOD COUNT 10.8 K/uL (4.8-10.8)
--- NOTE | 2018-01-29 13:44 | ED PDOC ---
HPI: Abdomen Time Seen by Provider: 01/29/18 12:02 Chief Complaint (Nursing): Abdominal Pain Chief Complaint (Provider): Abdominal Pain History Per: Patient History/Exam Limitations: no limitations Onset/Duration Of Symptoms: Days (x3) Current Symptoms Are (Timing): Still Present Additional Complaint(s): 72 year old male presenting for evaluation of worsening abdominal pain x3 days. Patient describes the pain as diffuse and associated with a bloating sensation. Patient admits to trying to induce vomiting and states that the vomiting temporarily helps with the bloating, but pt. reports persistent pain. Patient further reports a history of complicated appendicitis 20+ years ago with subsequent peritonitis and infection. Patient reports a history of small bowel obstructions in the past, resolved with NGT. Pt. has seen a surgeon here but its been 10+ years. PMD: neurologist Past Medical History Reviewed: Historical Data, Nursing Documentation, Vital Signs Vital Signs: Last Vital Signs Temp 98.4 F 01/29/18 11:14 Pulse 76 01/29/18 11:14 Resp 19 01/29/18 11:14 BP 121/67 01/29/18 11:14 Pulse Ox 97 01/29/18 11:14 - Medical History PMH: Anxiety, Arthritis, Back Problems, COPD, HTN, Hypercholesterolemia, Migraine, Rheumatoid Arthritis, Sleep Apnea Denies: Asthma, CHF, HIV, Chronic Kidney Disease, Sexually Transmitted Disease - Surgical History Surgical History: Appendectomy, Hernia Repair Denies: CABG, Carotid Endarterectomy, Cholecystectomy, Coronary Stent, Endoscopy, Pacemaker, Tonsillectomy - Family History Family History: States: Unknown Family Hx - Immunization History Hx Tetanus Toxoid Vaccination: No Hx Influenza Vaccination: No Hx Pneumococcal Vaccination: No - Home Medications Home Medications: Ambulatory Orders Medication Instructions Recorded Acetaminophen/Butalbital/Caf 1 tab PO Q12 PRN 01/29/18 [Fioricet] Clorazepate Dipotassium 15 mg PO Q8 01/29/18 Cyanocobalamin [Vitamin B12 1000 1 tab PO DAILY 01/29/18 mcg Tab] Gabapentin [Neurontin] 300 mg PO Q8 01/29/18 Ibuprofen [Motrin Tab] 800 mg PO Q12 PRN 01/29/18 Lisinopril [Zestril] 20 mg PO DAILY 01/29/18 Montelukast [Singulair] 10 mg PO HS 01/29/18 Multivitamin [Multi-Vitamin Daily] 1 tab PO DAILY 01/29/18 Sennosides [Senna] 2 tab PO DAILY PRN 01/29/18 Vitamin B Complex [Super B-50 1 cap PO DAILY 01/29/18 Complex] Zolpidem [Ambien] 5 mg PO HS 01/29/18 traMADol [Ultram] 50 mg PO Q12 PRN 01/29/18 - Allergies Allergies/Adverse Reactions: Allergies Allergy/AdvReac Type Severity Reaction Status Date / Time No Known Allergies Allergy Verified 12/04/17 16:04 Review of Systems ROS Statement: Except As Marked, All Systems Reviewed And Found Negative Constitutional: Negative for: Fever Gastrointestinal: Positive for: Vomiting (self induced), Abdominal Pain. Negative for: Diarrhea Physical Exam - Reviewed Nursing Documentation Reviewed: Yes Vital Signs Reviewed: Yes - Physical Exam Appears: Positive for: Non-toxic, No Acute Distress Head Exam: Positive for: ATRAUMATIC, NORMAL INSPECTION, NORMOCEPHALIC Skin: Positive for: Normal Color, Warm, Dry. Negative for: Rash Eye Exam: Positive for: EOMI, Normal appearance, PERRL ENT: Positive for: Normal ENT Inspection Neck: Positive for: Normal, Painless ROM, Supple Cardiovascular/Chest: Positive for: Regular Rate, Rhythm. Negative for: Murmur Respiratory: Positive for: Normal Breath Sounds. Negative for: Respiratory Distress Gastrointestinal/Abdominal: Positive for: Bowel Sounds, Soft, Tenderness (mild, diffuse), Distended (mild). Negative for: Guarding, Rebound Back: Positive for: Normal Inspection. Negative for: L CVA Tenderness, R CVA Tenderness, Vertebral Tenderness Extremity: Positive for: Normal ROM. Negative for: Pedal Edema, Deformity Neurologic/Psych: Positive for: Alert, Oriented. Negative for: Motor/Sensory Deficits - Laboratory Results Result Diagrams: 01/29/18 13:10 01/29/18 13:10 - ECG O2 Sat by Pulse Oximetry: 97 (RA) Pulse Ox Interpretation: Normal Medical Decision Making Medical Decision Makin Plan: -CT Abdomen and pelvis w/ contrast -CMP -Lupase -CBC -Obstructive series x-ray -Morphine 4mg IV -NS 1L IVB -Zofran 4mg IVP -Urinalysis -Reevaluation Pt. made NPO. Pt. is feeling better, resting comfortably, vitals remain stable. CT results as below, case discussed again with surgical elastic knitter hand frame. Additional labs sent. Pt. evaluated by surgical elastic knitter hand frame, NGT placed by surgery with 300cc bilious return and pt. feeling better, vitals remain stable. Case d/w DrThierry Barriga for admisison. Accession No. : [id number] Patient Name / ID : JARON GOMES / [id number] Exam Date : 01/29/2018 13:01:22 ( Approved ) Study Comment : Sex / Age : M / 72Y Creator : Levi Wan MD Dictator : Levi Wan MD Continuous Miner : Tissue Packer : Levi Wan MD Approver2 : Report Date : 01/29/2018 14:17:54 My Comment : * Date of service: 01/29/2018 PROCEDURE: Radiographs of the chest and abdomen (obstructive series) HISTORY: Abdominal pain COMPARISON: No prior. TECHNIQUE: AP radiograph of the chest, with upright and supine radiographs of the abdomen. FINDINGS: CHEST: Lungs: Clear. Cardiovascular: Normal size heart. No pulmonary vascular congestion. No aortic atherosclerotic calcification present Pleura: No pleural fluid. No pneumothorax. Other findings: None. ABDOMEN AND PELVIS: Bowel: Dilated proximal and mid small bowel disproportionate to that seen distally. Trace air identified throughout the colon. Findings are likely early/incomplete small bowel obstruction. Free air: None. Bones: Unremarkable. Other findings: None. IMPRESSION: Early-incomplete small bowel obstruction. No visible free air. Creator : jose corley Dictator : Levi Wan MD Continuous Miner : Tissue Packer : Levi Wan MD Approver2 : Report Date : 01/29/2018 15:40:16 My Comment : Date of service: 01/29/2018 PROCEDURE: CT Abdomen and Pelvis with contrast HISTORY: abdominal pain h/o SBO COMPARISON: 05/15/2015 CT abdomen and pelvis TECHNIQUE: Intravenous contrast dose: 95 cc Omnipaque 300. Radiation dose: Total exam DLP = <inf_radiation_dlp> mGy-cm. This CT exam was performed using one or more of the following dose reduction techniques: Automated exposure control, adjustment of the mA and/or kV according to patient size, and/or use of iterative reconstruction technique. FINDINGS: LOWER THORAX: Unremarkable. LIVER: Hepatic steatosis. No focal masses. No intrahepatic bile duct dilatation or perihepatic ascites. GALLBLADDER AND BILE DUCTS: Unremarkable. PANCREAS: Unremarkable. No gross lesion or ductal dilatation. SPLEEN: Unremarkable. ADRENALS: Unremarkable. No mass. KIDNEYS AND URETERS: Unremarkable. No hydronephrosis. No solid mass. VASCULATURE: Unremarkable. No aortic aneurysm. No atherosclerotic calcification or mural plaque present. BOWEL: Distal small bowel obstruction which may be closed loop type. This is based on "whirl" sign in the mesentery. Distal small bowel loops and colon are of normal caliber. APPENDIX: No abnormalities to suggest acute appendicitis. No right lower quadrant inflammatory processes identified. PERITONEUM: Trace free fluid in the pelvis. No free air identified LYMPH NODES: Unremarkable. No enlarged lymph nodes. BLADDER: Unremarkable. REPRODUCTIVE: Unremarkable. BONES: No acute fracture. Grade 1 anterolisthesis L5-S1. Associated pars defect noted. OTHER FINDINGS: Lipoma within the left quadriceps muscle an incidental finding unchanged compared to the prior study. IMPRESSION: Distal small bowel obstruction possible closed loop type. Communication of results: I discussed findings with the physician in library clerical assistant involved in the care and management this patient at 15:59. Scribe Attestation: Documented by Robi Hightower, acting as a scribe for Keeley Santillan PA-C. Provider Scribe Attestation: All medical record entries made by the Scribe were at my direction and personally dictated by me. I have reviewed the chart and agree that the record accurately reflects my personal performance of the history, physical exam, medical decision making, and the department course for this patient. I have also personally directed, reviewed, and agree with the discharge instructions and disposition. Disposition - Clinical Impression Clinical Impression: Small bowel obstruction - Patient ED Disposition Is Patient to be Admitted: Yes Discussed With : Tony Barriga Counseled Patient/Family Regarding: Studies Performed, Diagnosis, Need For Followup - Disposition Disposition Time: 20:16 Condition: STABLE
[2018-01-29 13:54] LABS: ALB/GLOB RATIO 1.4 (1.0-2.1); ALBUMIN 4.5 g/dL (3.5-5.0); ALT/SGPT 41 U/L (21-72); AST/SGOT 51 U/L (17-59); BLOOD UREA NITROGEN 27 mg/dl (9-20); CALCIUM 9.5 mg/dL (8.4-10.2); GFR NON-AFRICAN AMERICAN > 60; LIPASE 72 U/L (23-300)
--- NOTE | 2018-01-29 14:21 | RAD ---
Date of service: 01/29/2018 PROCEDURE: Radiographs of the chest and abdomen (obstructive series) HISTORY: Abdominal pain COMPARISON: No prior. TECHNIQUE: AP radiograph of the chest, with upright and supine radiographs of the abdomen. FINDINGS: CHEST: Lungs: Clear. Cardiovascular: Normal size heart. No pulmonary vascular congestion. No aortic atherosclerotic calcification present Pleura: No pleural fluid. No pneumothorax. Other findings: None. ABDOMEN AND PELVIS: Bowel: Dilated proximal and mid small bowel disproportionate to that seen distally. Trace air identified throughout the colon. Findings are likely early/incomplete small bowel obstruction. Free air: None. Bones: Unremarkable. Other findings: None. IMPRESSION: Early-incomplete small bowel obstruction. No visible free air.
[2018-01-29] MEDS ORDERED: Iohexol 300 100 ML IJ ONE (15:12)
[2018-01-29] MEDS ORDERED: Sodium Chloride 0.9% 50 ML IV ONE (15:12)
[2018-01-29 15:35] LABS: SQUAMOUS EPITHIAL < 1 /hpf (0-5); URINE BACTERIA RARE (<OCC); URINE BILIRUBIN NEGATIVE (NEGATIVE); URINE BLOOD NEGATIVE (NEGATIVE); URINE CLARITY CLOUDY (Clear); URINE GLUCOSE (UA) NEG (Normal); URINE HYALINE CAST 0-2 /hpf (0-2); URINE LEUKOCYTE ESTERASE NEG Leu/uL (Negative)
[2018-01-29 15:42] LABS: URINE COLOR YELLOW (YELLOW)
[2018-01-29 15:43] LABS: URINE PROTEIN 30 mg/dL (NEGATIVE); URINE UROBILINOGEN 0.2 mg/dL (0.2-1.0)
--- NOTE | 2018-01-29 16:09 | CT ---
Date of service: 01/29/2018 PROCEDURE: CT Abdomen and Pelvis with contrast HISTORY: abdominal pain h/o SBO COMPARISON: 05/15/2015 CT abdomen and pelvis TECHNIQUE: Intravenous contrast dose: 95 cc Omnipaque 300. Radiation dose: Total exam DLP = <inf_radiation_dlp> mGy-cm. This CT exam was performed using one or more of the following dose reduction techniques: Automated exposure control, adjustment of the mA and/or kV according to patient size, and/or use of iterative reconstruction technique. FINDINGS: LOWER THORAX: Unremarkable. LIVER: Hepatic steatosis. No focal masses. No intrahepatic bile duct dilatation or perihepatic ascites. GALLBLADDER AND BILE DUCTS: Unremarkable. PANCREAS: Unremarkable. No gross lesion or ductal dilatation. SPLEEN: Unremarkable. ADRENALS: Unremarkable. No mass. KIDNEYS AND URETERS: Unremarkable. No hydronephrosis. No solid mass. VASCULATURE: Unremarkable. No aortic aneurysm. No atherosclerotic calcification or mural plaque present. BOWEL: Distal small bowel obstruction which may be closed loop type. This is based on "whirl" sign in the mesentery. Distal small bowel loops and colon are of normal caliber. APPENDIX: No abnormalities to suggest acute appendicitis. No right lower quadrant inflammatory processes identified. PERITONEUM: Trace free fluid in the pelvis. No free air identified LYMPH NODES: Unremarkable. No enlarged lymph nodes. BLADDER: Unremarkable. REPRODUCTIVE: Unremarkable. BONES: No acute fracture. Grade 1 anterolisthesis L5-S1. Associated pars defect noted. OTHER FINDINGS: Lipoma within the left quadriceps muscle an incidental finding unchanged compared to the prior study. IMPRESSION: Distal small bowel obstruction possible closed loop type. Communication of results: I discussed findings with the physician in assistant boys track coach involved in the care and management this patient at 15:59.
[2018-01-29 17:04] LABS: INR 1.1; PROTHROMBIN TIME 12.4 Seconds (9.8-13.1)
[2018-01-29] MEDS ORDERED: Morphine 4 MG/ML VIAL ONE (17:04)
[2018-01-29] MEDS ORDERED: Morphine 4 MG/ML VIAL IVP ONE (17:15)
--- NOTE | 2018-01-29 18:50 | CP.PCM.CON ---
History of Present Illness - History of Present Illness History of Present Illness: Surgery 72 M w PMH of multiple SBO , PSH of open appy, exp lap for SBO, inguinal hernia repair b/l, dx laparoscopy came with abdominal pain started 3 days ago. Pain is gradually worsen and diffuse now. Pt also had multiple episodes of vomiting. Reports it was black. Had regular BM today. Reports anorexia. Last time he ate was 2 days ago. Denies fever, CP , SOB. Pt had SBO multiple times and treated conservatively last time. Had diagnostic laparoscopy 5 years ago for SBO and had exp lap when he was 14 yrs old after open appendectomy PMH HTN SBO PSH see above Med antihypertensive med SS lives w family Review of Systems - Review of Systems Review of Systems: See HPI Past Patient History - Infectious Disease Hx of Infectious Diseases: None - Past Medical History & Family History Past Medical History?: Yes - Past Social History Smoking Status: Never Smoked - CARDIAC Hx Congestive Heart Failure: No Hx Hypercholesterolemia: Yes Hx Hypertension: Yes Hx Pacemaker: No - PULMONARY Hx Asthma: No Hx Chronic Obstructive Pulmonary Disease (COPD): Yes Hx Sleep Apnea: Yes - NEUROLOGICAL Hx Migraine: Yes - HEENT Hx HEENT Problems: No - RENAL Hx Chronic Kidney Disease: No - ENDOCRINE/METABOLIC Hx Endocrine Disorders: No - HEMATOLOGICAL/ONCOLOGICAL Hx Human Immunodeficiency Virus (HIV): No - INTEGUMENTARY Hx Dermatological Problems: No - MUSCULOSKELETAL/RHEUMATOLOGICAL Hx Arthritis: Yes Hx Rheumatoid Arthritis: Yes - GASTROINTESTINAL Hx Gastrointestinal Disorders: No Hx Bowel Surgery: Yes (due to peritonitis) Hx Colostomy: No - GENITOURINARY/GYNECOLOGICAL Hx Sexually Transmitted Disorders: No - PSYCHIATRIC Hx Anxiety: Yes - SURGICAL HISTORY Hx Appendectomy: Yes Hx Carotid Endarterectomy: No Hx Cholecystectomy: No Hx Coronary Artery Bypass Graft: No Hx Coronary Stent: No Hx Tonsillectomy: No - ANESTHESIA Hx Anesthesia: Yes Hx Anesthesia Reactions: No Hx Malignant Hyperthermia: No Meds Allergies/Adverse Reactions: Allergies Allergy/AdvReac Type Severity Reaction Status Date / Time No Known Allergies Allergy Verified 12/04/17 16:04 - Medications Medications: Current Medications Sodium Chloride (Sodium Chloride 0.9%) 1,000 mls @ 1,000 mls/hr IV .Q1H ALBA Stop: 01/30/18 12:54 Last Admin: 01/29/18 13:19 Dose: 1,000 mls/hr Physical Exam - Constitutional Appears: No Acute Distress - Head Exam Head Exam: ATRAUMATIC, NORMAL INSPECTION, NORMOCEPHALIC - Eye Exam Eye Exam: EOMI, Normal appearance, PERRL Pupil Exam: NORMAL ACCOMODATION, PERRL - ENT Exam ENT Exam: Mucous Membranes Moist, Normal Exam - Neck Exam Neck exam: Positive for: Normal Inspection - Respiratory Exam Respiratory Exam: NORMAL BREATHING PATTERN - Cardiovascular Exam Cardiovascular Exam: REGULAR RHYTHM - GI/Abdominal Exam GI & Abdominal Exam: Distended, Soft, Tenderness. absent: Firm, Hernia, Rebound, Rigid - Exam Exam: NORMAL INSPECTION - Extremities Exam Extremities exam: Positive for: full ROM, normal inspection - Back Exam Back exam: NORMAL INSPECTION - Neurological Exam Neurological exam: Oriented x3 - Psychiatric Exam Psychiatric exam: Normal Affect, Normal Mood - Skin Skin Exam: Dry, Intact, Normal Color, Warm Results - Vital Signs Recent Vital Signs: Last Vital Signs Temp 98.4 F 01/29/18 11:14 Pulse 71 01/29/18 17:46 Resp 16 01/29/18 17:46 BP 171/87 H 01/29/18 17:46 Pulse Ox 97 01/29/18 17:52 - Labs Result Diagrams: 01/29/18 13:10 01/29/18 13:10 Labs: Laboratory Results - last 24 hr 01/29/18 01/29/18 01/29/18 13:10 13:10 15:19 WBC 10.8 D RBC 4.45 Hgb 13.8 Hct 41.2 MCV 92.7 MCH 31.0 MCHC 33.5 RDW 14.1 Plt Count 251 MPV 8.4 Neut % (Auto) 75.1 H Lymph % (Auto) 14.4 L [place] % (Auto) 8.0 Eos % (Auto) 2.1 Baso % (Auto) 0.4 Neut # (Auto) 8.1 H Lymph # (Auto) 1.5 [place] # (Auto) 0.9 H Eos # (Auto) 0.2 Baso # (Auto) 0.0 PT INR APTT Sodium 141 Potassium 4.4 Chloride 98 Carbon Dioxide 34 H Anion Gap 13 BUN 27 H Creatinine 0.9 Est GFR ( Amer) > 60 Est GFR (Non-Af Amer) > 60 Random Glucose 132 H Lactic Acid Calcium 9.5 Total Bilirubin 1.2 AST 51 ALT 41 Alkaline Phosphatase 96 Total Protein 7.7 Albumin 4.5 Globulin 3.2 Albumin/Globulin Ratio 1.4 Lipase 72 Urine Color Yellow Urine Clarity Cloudy Urine pH 6.0 Ur Specific [place] 1.019 Urine Protein 30 Urine Glucose (UA) Neg Urine Ketones 15 Urine Blood Negative Urine Nitrate Negative Urine Bilirubin Negative Urine Urobilinogen 0.2 Ur Leukocyte Esterase Neg Urine RBC (Auto) 3 Urine Microscopic WBC 1 Ur Squamous Epith Cells < 1 Urine Bacteria Rare Hyaline Casts 0-2 Blood Type Antibody Screen BBK History Checked 01/29/18 01/29/18 01/29/18 16:45 16:50 16:50 WBC RBC Hgb Hct MCV MCH MCHC RDW Plt Count MPV Neut % (Auto) Lymph % (Auto) [place] % (Auto) Eos % (Auto) Baso % (Auto) Neut # (Auto) Lymph # (Auto) [place] # (Auto) Eos # (Auto) Baso # (Auto) PT 12.4 INR 1.1 APTT 36.0 Sodium Potassium Chloride Carbon Dioxide Anion Gap BUN Creatinine Est GFR ( Amer) Est GFR (Non-Af Amer) Random Glucose Lactic Acid 1.1 Calcium Total Bilirubin AST ALT Alkaline Phosphatase Total Protein Albumin Globulin Albumin/Globulin Ratio Lipase Urine Color Urine Clarity Urine pH Ur Specific [place] Urine Protein Urine Glucose (UA) Urine Ketones Urine Blood Urine Nitrate Urine Bilirubin Urine Urobilinogen Ur Leukocyte Esterase Urine RBC (Auto) Urine Microscopic WBC Ur Squamous Epith Cells Urine Bacteria Hyaline Casts Blood Type O POSITIVE Antibody Screen Negative BBK History Checked Patient has bt Assessment & Plan - Assessment and Plan (Free Text) Assessment: SBO NPO IVF Ambulate Pain/nausea control NGT to suction WIll BRIAN Schulte
[2018-01-29] MEDS ORDERED: HYDROmorphone 0.5 mg/0.5 ml ISec IVP PRN (18:52)
[2018-01-29] MEDS: Dextrose 5%/0.9% NS 1,000 ML IV SCH (23:00)
[2018-01-29] MEDS ORDERED: Albuterol-Ipratrop 3 mg / 0.5 (3 ml) UD INH PRN (23:44)
--- NOTE | 2018-01-30 08:23 | CP.PCM.HP ---
History of Present Illness - History of Present Illness History of Present Illness: CC: Abdomen & Vomiting History of Present Illness: A 72 M with PMH of multiple SBO , PSH of open appendectomy, Exp. Laporascopy for SBO, inguinal hernia repair b/l, dx Laparoscopy came with abdominal pain 7- 10/10 , Colicky started 3 days ago associated with vomiting and abdominal distention . Pain is gradually worsen and diffuse now. Pt also had multiple episodes of vomiting. Reports it was black. Reports anorexia.Unable to have BMV and Gas Last time he ate was 2 days ago. Denies fever, CP , SOB. Had SBO multiple times and treated conservatively last time. Had diagnostic Laparoscopy 5 years ago for SBO and had exp lap when he was 14 yrs old after open appendectomy. Present on Admission - Present on Admission Any Indicators Present on Admission: No Review of Systems - Review of Systems All systems: reviewed and no additional remarkable complaints except Review of Systems: As per HPI Past Patient History - Infectious Disease Hx of Infectious Diseases: None - Past Medical History & Family History Past Medical History?: Yes Past Family History: Reviewed and not pertinent - Past Social History Smoking Status: Never Smoked Alcohol: None Drugs: Denies - CARDIAC Hx Congestive Heart Failure: No Hx Hypercholesterolemia: Yes Hx Hypertension: Yes Hx Pacemaker: No - PULMONARY Hx Asthma: No Hx Chronic Obstructive Pulmonary Disease (COPD): Yes Hx Sleep Apnea: Yes - NEUROLOGICAL Hx Migraine: Yes - HEENT Hx HEENT Problems: No Hx Blind: No Hx Cataracts: No Hx Deafness: No Hx Difficulty Chewing: No Hx Epistaxis: No Hx Glaucoma: No Hx Macular Degeneration: No Hx Sinusitis: No - RENAL Hx Chronic Kidney Disease: No Hx Dialysis: No Hx Kidney Stones: No Hx Neurogenic Bladder: No Hx Pyelonephritis: No Hx Renal (Kidney) Cancer: No Hx Renal Failure: No - ENDOCRINE/METABOLIC Hx Endocrine Disorders: No Hx Adrenal Cancer: No Hx Diabetes Insipidus: No Hx Diabetes Mellitus Type 1: No Hx Diabetes Mellitus Type 2: No Hx Hyperthyroidism: No Hx Hypothyroidism: No Hx Systemic Lupus Erythematosus: No - HEMATOLOGICAL/ONCOLOGICAL Hx AIDS: No Hx Human Immunodeficiency Virus (HIV): No - INTEGUMENTARY Hx Dermatological Problems: No - MUSCULOSKELETAL/RHEUMATOLOGICAL Hx Falls: No - GASTROINTESTINAL Hx Gastrointestinal Disorders: No Hx Bowel Surgery: Yes (due to peritonitis) Hx Colostomy: No - GENITOURINARY/GYNECOLOGICAL Hx Sexually Transmitted Disorders: No - PSYCHIATRIC Hx Substance Use: No - SURGICAL HISTORY Hx Appendectomy: Yes Hx Carotid Endarterectomy: No Hx Cholecystectomy: No Hx Coronary Artery Bypass Graft: No Hx Coronary Stent: No Hx Tonsillectomy: No - ANESTHESIA Hx Anesthesia: Yes Hx Anesthesia Reactions: No Hx Malignant Hyperthermia: No Has any member of the family had a problem w/ anesthesia?: No Meds Allergies/Adverse Reactions: Allergies Allergy/AdvReac Type Severity Reaction Status Date / Time No Known Allergies Allergy Verified 12/04/17 16:04 Physical Exam - Constitutional Appears: Well, No Acute Distress - Head Exam Head Exam: ATRAUMATIC, NORMAL INSPECTION, NORMOCEPHALIC - Eye Exam Eye Exam: EOMI, Normal appearance, PERRL Pupil Exam: NORMAL ACCOMODATION, PERRL - ENT Exam ENT Exam: Mucous Membranes Moist, Normal Exam - Neck Exam Neck exam: Positive for: Normal Inspection - Respiratory Exam Respiratory Exam: Clear to Auscultation Bilateral, NORMAL BREATHING PATTERN. absent: Rales - Cardiovascular Exam Cardiovascular Exam: REGULAR RHYTHM, +S1, +S2 - GI/Abdominal Exam GI & Abdominal Exam: Distended, Soft, Tenderness. absent: Rebound, Rigid - Extremities Exam Extremities exam: Positive for: normal inspection - Back Exam Back exam: NORMAL INSPECTION - Neurological Exam Neurological exam: Alert, CN II-XII Intact, Normal Gait, Oriented x3, Reflexes Normal - Psychiatric Exam Psychiatric exam: Normal Affect, Normal Mood - Skin Skin Exam: Dry, Intact, Normal Color, Warm Results - Vital Signs Recent Vital Signs: Last Vital Signs Temp 98.4 F 01/30/18 08:00 Pulse 77 01/30/18 08:00 Resp 19 01/30/18 08:00 BP 158/73 H 01/30/18 08:00 Pulse Ox 94 L 01/30/18 08:00 - Labs Result Diagrams: 01/29/18 13:10 01/29/18 13:10 Labs: Laboratory Results - last 24 hr 01/29/18 01/29/18 01/29/18 13:10 13:10 15:19 WBC 10.8 D RBC 4.45 Hgb 13.8 Hct 41.2 MCV 92.7 MCH 31.0 MCHC 33.5 RDW 14.1 Plt Count 251 MPV 8.4 Neut % (Auto) 75.1 H Lymph % (Auto) 14.4 L [place] % (Auto) 8.0 Eos % (Auto) 2.1 Baso % (Auto) 0.4 Neut # (Auto) 8.1 H Lymph # (Auto) 1.5 [place] # (Auto) 0.9 H Eos # (Auto) 0.2 Baso # (Auto) 0.0 PT INR APTT Sodium 141 Potassium 4.4 Chloride 98 Carbon Dioxide 34 H Anion Gap 13 BUN 27 H Creatinine 0.9 Est GFR ( Amer) > 60 Est GFR (Non-Af Amer) > 60 Random Glucose 132 H Lactic Acid Calcium 9.5 Total Bilirubin 1.2 AST 51 ALT 41 Alkaline Phosphatase 96 Total Protein 7.7 Albumin 4.5 Globulin 3.2 Albumin/Globulin Ratio 1.4 Lipase 72 Urine Color Yellow Urine Clarity Cloudy Urine pH 6.0 Ur Specific [place] 1.019 Urine Protein 30 Urine Glucose (UA) Neg Urine Ketones 15 Urine Blood Negative Urine Nitrate Negative Urine Bilirubin Negative Urine Urobilinogen 0.2 Ur Leukocyte Esterase Neg Urine RBC (Auto) 3 Urine Microscopic WBC 1 Ur Squamous Epith Cells < 1 Urine Bacteria Rare Hyaline Casts 0-2 Blood Type Antibody Screen BBK History Checked 01/29/18 01/29/18 01/29/18 16:45 16:50 16:50 WBC RBC Hgb Hct MCV MCH MCHC RDW Plt Count MPV Neut % (Auto) Lymph % (Auto) [place] % (Auto) Eos % (Auto) Baso % (Auto) Neut # (Auto) Lymph # (Auto) [place] # (Auto) Eos # (Auto) Baso # (Auto) PT 12.4 INR 1.1 APTT 36.0 Sodium Potassium Chloride Carbon Dioxide Anion Gap BUN Creatinine Est GFR ( Amer) Est GFR (Non-Af Amer) Random Glucose Lactic Acid 1.1 Calcium Total Bilirubin AST ALT Alkaline Phosphatase Total Protein Albumin Globulin Albumin/Globulin Ratio Lipase Urine Color Urine Clarity Urine pH Ur Specific [place] Urine Protein Urine Glucose (UA) Urine Ketones Urine Blood Urine Nitrate Urine Bilirubin Urine Urobilinogen Ur Leukocyte Esterase Urine RBC (Auto) Urine Microscopic WBC Ur Squamous Epith Cells Urine Bacteria Hyaline Casts Blood Type O POSITIVE Antibody Screen Negative BBK History Checked Patient has bt - Imaging and Cardiology CT scan - abdomen Status: Report reviewed by me Assessment & Plan (1) SBO (small bowel obstruction) Status: Acute Priority: Medium (2) HLD (hyperlipidemia) Status: Acute
--- NOTE | 2018-01-30 08:42 | CP.PCM.PN ---
Subjective - Date & Time of Evaluation Date of Evaluation: 01/30/18 Time of Evaluation: 08:40 - Subjective Subjective: Surgery Pt seen and examined. No acute events. Denies fever, nausea, vomiting. NGT in place. 50cc bilious overnight. No BM, no flatus. feels weak. Objective - Vital Signs/Intake and Output Vital Signs (last 24 hours): Temp Pulse Resp BP Pulse Ox 98.4 F 77 19 158/73 H 94 L 01/30/18 08:00 01/30/18 08:00 01/30/18 08:00 01/30/18 08:00 01/30/18 08:00 Intake and Output: 01/30/18 01/30/18 06:59 18:59 Intake Total 800 Output Total 50 Balance 750 - Medications Medications: Current Medications Albuterol/Ipratropium (Duoneb 3 Mg/0.5 Mg (3 Ml) Ud) 3 ml INH RQ4 PRN PRN Reason: Shortness of Breath Bisacodyl (Dulcolax) 10 mg [place] DAILY PRN PRN Reason: Constipation Enoxaparin Sodium (Lovenox) 40 mg [place] DAILY ALBA; Protocol Hydromorphone HCl (Dilaudid) 1 mg IVP Q4 PRN PRN Reason: Pain, severe (8-10) Last Admin: 01/30/18 04:59 Dose: 1 mg Dextrose/Sodium Chloride (Dextrose 5%/0.9% Ns 1000 Ml) 1,000 mls @ 100 mls/hr IV .Q10H ALBA Stop: 02/02/18 23:50 Last Admin: 01/29/18 23:00 Dose: 100 mls/hr Lorazepam (Ativan) 2 mg IVP Q8 ALBA Last Admin: 01/30/18 01:51 Dose: 2 mg Ondansetron HCl (Zofran Inj) 4 mg IVP Q4 PRN PRN Reason: Nausea/Vomiting Last Admin: 01/29/18 21:24 Dose: 4 mg - Labs Labs: 01/29/18 13:10 01/29/18 13:10 PT 12.4 Seconds (9.8-13.1) 01/29/18 16:45 INR 1.1 01/29/18 16:45 APTT 36.0 Seconds (25.6-37.1) 01/29/18 16:45 - Constitutional Appears: No Acute Distress - Head Exam Head Exam: ATRAUMATIC, NORMAL INSPECTION, NORMOCEPHALIC - Eye Exam Eye Exam: EOMI, Normal appearance, PERRL Pupil Exam: NORMAL ACCOMODATION, PERRL - ENT Exam ENT Exam: Mucous Membranes Moist, Normal Exam - Neck Exam Neck Exam: Full ROM - Respiratory Exam Respiratory Exam: NORMAL BREATHING PATTERN - Cardiovascular Exam Cardiovascular Exam: REGULAR RHYTHM - GI/Abdominal Exam GI & Abdominal Exam: Soft, Tenderness. absent: Distended, Firm, Hernia, Rebound Additional comments: multiple well healed scars. - Exam Exam: NORMAL INSPECTION - Extremities Exam Extremities Exam: Full ROM - Back Exam Back Exam: NORMAL INSPECTION - Neurological Exam Neurological Exam: Alert, Awake, Normal Gait, Oriented x3 - Psychiatric Exam Psychiatric exam: Normal Affect, Normal Mood - Skin Skin Exam: Dry, Intact, Normal Color, Warm Assessment and Plan - Assessment and Plan (Free Text) Assessment: SBO f/u AXR to follow location of PO contrast from yesterday Monitor BM NPO IVF Ambulate Pain/nausea control NGT to suction DW Dr. Schulte
[2018-01-30] MEDS ORDERED: Enoxaparin 40 mg Syringe SC SCH (09:00)
[2018-01-30] MEDS: Dextrose 5%/0.9% NS 1,000 ML IV SCH ×3 (09:58→20:00)
[2018-01-30] MEDS ORDERED: HYDROmorphone 1 mg/ml ISec IVP STA (12:58)
[2018-01-30] MEDS ORDERED: Benzocaine/Menthol (Cepacol) Lozenge PO PRN (15:25)
--- NOTE | 2018-01-30 16:36 | RAD ---
Date of service: 01/30/2018 HISTORY: SBO, follow PO contrast from yesterday, upright COMPARISON: None available. FINDINGS: BOWEL: Gas seen mildly distending several upper and central small bowel loops with nasogastric tube coiled at the left upper quadrant abdomen further. Limited gas is seen in various large-bowel segments however oral contrast seen throughout the large bowel. Thickening of small bowel loop folds may reflect enteritis. Clinically correlate further. Small bowel distention likely reflects ileus with limited partial or intermittent distal small bowel obstruction not completely excluded. No prominent free intra peritoneal gas collection evident.. BONES: Normal. OTHER FINDINGS: None. IMPRESSION: Stable distention of small-bowel loops with NG tube again identified at the left upper quadrant abdomen. Oral contrast is seen scattered throughout the large bowel as well as limited gas. Ileus and possible small-bowel enteritis favored over intermittent or partial distal small bowel obstruction
[2018-01-30 16:40] VITALS: RESP 20
[2018-01-30] MEDS ORDERED: Enalaprilat 2.5 MG/2 ML IVP PRN (22:52)
[2018-01-31] MEDS: Dextrose 5%/0.9% NS 1,000 ML IV SCH (00:33)
[2018-01-31 00:42] VITALS: BP 152/67; PULSE 85; TEMP 98.6; O2SAT 95
--- NOTE | 2018-01-31 15:57 | CP.PCM.DIS ---
Provider - Provider Date of Admission: 01/29/18 19:13 Attending physician: Tony Barriga MD Time Spent in preparation of Discharge (in minutes): 10 Diagnosis - Discharge Diagnosis (1) SBO (small bowel obstruction) Status: Acute Priority: Medium (2) HLD (hyperlipidemia) Status: Acute Hospital Course - Lab Results Lab Results: Most Recent Lab Values WBC 10.8 K/uL (4.8-10.8) D 01/29/18 13:10 RBC 4.45 Mil/uL (4.40-5.90) 01/29/18 13:10 Hgb 13.8 g/dL (12.0-18.0) 01/29/18 13:10 Hct 41.2 % (35.0-51.0) 01/29/18 13:10 MCV 92.7 fl (80.0-94.0) 01/29/18 13:10 MCH 31.0 pg (27.0-31.0) 01/29/18 13:10 MCHC 33.5 g/dL (33.0-37.0) 01/29/18 13:10 RDW 14.1 % (11.5-14.5) 01/29/18 13:10 Plt Count 251 K/uL (130-400) 01/29/18 13:10 MPV 8.4 fl (7.2-11.7) 01/29/18 13:10 Neut % (Auto) 75.1 % (50.0-75.0) H 01/29/18 13:10 Lymph % (Auto) 14.4 % (20.0-40.0) L 01/29/18 13:10 [place] % (Auto) 8.0 % (0.0-10.0) 01/29/18 13:10 Eos % (Auto) 2.1 % (0.0-4.0) 01/29/18 13:10 Baso % (Auto) 0.4 % (0.0-2.0) 01/29/18 13:10 Neut # (Auto) 8.1 K/uL (1.8-7.0) H 01/29/18 13:10 Lymph # (Auto) 1.5 K/uL (1.0-4.3) 01/29/18 13:10 [place] # (Auto) 0.9 K/uL (0.0-0.8) H 01/29/18 13:10 Eos # (Auto) 0.2 K/uL (0.0-0.7) 01/29/18 13:10 Baso # (Auto) 0.0 K/uL (0.0-0.2) 01/29/18 13:10 PT 12.4 Seconds (9.8-13.1) 01/29/18 16:45 INR 1.1 01/29/18 16:45 APTT 36.0 Seconds (25.6-37.1) 01/29/18 16:45 Sodium 141 mmol/l (132-148) 01/29/18 13:10 Potassium 4.4 MMOL/L (3.6-5.0) 01/29/18 13:10 Chloride 98 mmol/L (98-107) 01/29/18 13:10 Carbon Dioxide 34 mmol/L (22-30) H 01/29/18 13:10 Anion Gap 13 (10-20) 01/29/18 13:10 BUN 27 mg/dl (9-20) H 01/29/18 13:10 Creatinine 0.9 mg/dl (0.8-1.5) 01/29/18 13:10 Est GFR ( Amer) > 60 01/29/18 13:10 Est GFR (Non-Af Amer) > 60 01/29/18 13:10 Random Glucose 132 mg/dL (75-110) H 01/29/18 13:10 Lactic Acid 1.1 MMOL/L (0.7-2.1) 01/29/18 16:50 Calcium 9.5 mg/dL (8.4-10.2) 01/29/18 13:10 Total Bilirubin 1.2 mg/dl (0.2-1.3) 01/29/18 13:10 AST 51 U/L (17-59) 01/29/18 13:10 ALT 41 U/L (21-72) 01/29/18 13:10 Alkaline Phosphatase 96 U/L (38-126) 01/29/18 13:10 Total Protein 7.7 G/DL (6.3-8.2) 01/29/18 13:10 Albumin 4.5 g/dL (3.5-5.0) 01/29/18 13:10 Globulin 3.2 gm/dL (2.2-3.9) 01/29/18 13:10 Albumin/Globulin Ratio 1.4 (1.0-2.1) 01/29/18 13:10 Lipase 72 U/L (23-300) 01/29/18 13:10 Urine Color Yellow (YELLOW) 01/29/18 15: Urine Clarity Cloudy (Clear) 01/29/18 15:19 Urine pH 6.0 (5.0-8.0) 01/29/18 15:19 Ur Specific [place] 1.019 (1.003-1.030) 01/29/18 15: Urine Protein 30 mg/dL (NEGATIVE) 01/29/18 15: Urine Glucose (UA) Neg mg/dL (Normal) 01/29/18 15: Urine Ketones 15 mg/dL (NEGATIVE) 01/29/18 15:19 Urine Blood Negative (NEGATIVE) 01/29/18 15:19 Urine Nitrate Negative (NEGATIVE) 01/29/18 15: Urine Bilirubin Negative (NEGATIVE) 01/29/18 15:19 Urine Urobilinogen 0.2 mg/dL (0.2-1.0) 01/29/18 15:19 Ur Leukocyte Esterase Neg [place]/uL (Negative) 01/29/18 15:19 Urine RBC (Auto) 3 /hpf (0-3) 01/29/18 15:19 Urine Microscopic WBC 1 /hpf (0-5) 01/29/18 15:19 Ur Squamous Epith Cells < 1 /hpf (0-5) 01/29/18 15:19 Urine Bacteria Rare (<OCC) 01/29/18 15:19 Hyaline Casts 0-2 /hpf (0-2) 01/29/18 15:19 Blood Type O POSITIVE 01/29/18 16:50 Antibody Screen Negative 01/29/18 16:50 BBK History Checked Patient has bt 01/29/18 16:50 Discharge Exam - Head Exam Head Exam: ATRAUMATIC, NORMAL INSPECTION, NORMOCEPHALIC Discharge Plan - Follow Up Plan Condition: STABLE Disposition: AGAINST MEDICAL ADVICE
== END 2018-01-31 05:53 | disposition left against medical advice (07) | DRG 390 ==
LOC: H.ER 11:08 → H.ERHOLD 19:13 → H.MEDSURG1 23:05
PROVIDERS: ADMIT Internal Medicine; ATTEND Internal Medicine
DX: K56.600 Partial intestinal obstruction, unspecified as to cause (principal); J44.9 Chronic obstructive pulmonary disease, unspecified; M06.9 Rheumatoid arthritis, unspecified; E78.00 Pure hypercholesterolemia, unspecified; E78.5 Hyperlipidemia, unspecified; G47.30 Sleep apnea, unspecified; I10 Essential (primary) hypertension; Z90.49 Acquired absence of other specified parts of digestive tract; F41.9 Anxiety disorder, unspecified; G43.909 Migraine, unspecified, not intractable, without status migrainosus; M19.90 Unspecified osteoarthritis, unspecified site; Z79.899 Other long term (current) drug therapy

== ENCOUNTER 2018-03-30 09:04 | Day surgery (SDC) | payer MEDICARE, MEDICAID ==
[2018-03-22 11:41] VITALS: BMI 25.5
[2018-03-30] MEDS ORDERED: Maxitrol Opht Susp ONE (09:24)
[2018-03-30] MEDS ORDERED: Pilocarpine 1% Opht Soln ONE (09:25)
[2018-03-30] MEDS ORDERED: CA CL/K CL/NA CL 500 ML IR ONE (09:25)
[2018-03-30] MEDS ORDERED: Tetracaine 0.5% Ophth 2 ML BOTTLE ONE (09:25)
[2018-03-30] MEDS ORDERED: Lidocaine 1% 20 MG/2 ML PF AMP ONE (09:25)
[2018-03-30] MEDS ORDERED: Carbachol 0.01% IO ONE ×3 (09:26→11:21)
[2018-03-30] MEDS ORDERED: STERILE IRRIGATING SOLUTION 45 ML IR ONE (09:26)
[2018-03-30] MEDS ORDERED: Chondroitin/Hyaluronate Opth Syringe KIT (0.55 ml-0.5 ml) IO ONE ×2 (09:26→11:16)
[2018-03-30] MEDS ORDERED: Povidone Iodine 5% Opht SOLUTION ONE (09:26)
[2018-03-30] MEDS ORDERED: Tropicamide 1% Opht 150 DROP/15 ML OS ONE ×2 (10:20→10:30)
[2018-03-30] MEDS ORDERED: Flurbiprofen 0.03% Opht SOLN OS ONE ×2 (10:20→10:29)
[2018-03-30] MEDS ORDERED: Phenylephrine 2.5% Opht Soln OS ONE ×2 (10:20→10:28)
[2018-03-30] MEDS ORDERED: Lactated Ringer's 1,000 ML IV ONE (10:42)
[2018-03-30] MEDS ORDERED: Midazolam 2 MG/2 ML VIAL ONE (10:43)
[2018-03-30] MEDS: EPINEPHrine 1 mg/ml (1:1000) Inj ONE ×2 (11:17→11:19)
[2018-03-30] MEDS ORDERED: Pilocarpine 1% Opht Soln OS ONE ×2 (11:20→11:23)
[2018-03-30] MEDS ORDERED: BSS 15 ML SOL IR ONE (11:21)
[2018-03-30] MEDS ORDERED: Maxitrol Opht Susp OS ONE ×2 (11:21→11:25)
[2018-03-30 12:31] VITALS: TEMP 97.3
[2018-03-30 12:43] VITALS: RESP 18; O2SAT 100
[2018-03-30 13:17] VITALS: BP 141/71; PULSE 66
--- NOTE | 2018-03-31 07:49 | OP ---
PROCEDURE DATE: 03/30/2018 SURGEON: OMA LÓPEZ MD ANESTHESIOLOGIST: NAYELI STEWART MD ANESTHESIA: LOCAL / IV SEDATION PREOPERATIVE DIAGNOSIS: CATARACT LEFT EYE. POSTOPERATIVE DIAGNOSIS: CATARACT LEFT EYE. OPERATION: CLEAR CORNEAL PHACOEMULSIFICATION WITH LENS IMPLANT LEFT EYE. PREPARATION AND PROCEDURE: After the patient was prepped and draped in the usual manner for sterile ophthalmic surgery, local IV sedation was administered; eye seals were applied to the upper and lower lid margins and an adult wire lid speculum was placed within the lids. Under microsurgical control, a two-step clear corneal incision was made into the anterior chamber. The initial incision was perpendicular to the corneal plane. The second incision with the keratome was placed at a 45-degree angle to the first incision. One cc of one percent Xylocaine MPF was instilled into the anterior chamber to achieve proper intraocular anesthesia. At this time, the Viscoelastic was injected into the anterior chamber for protection of the endothelium and for maintenance of the chamber depth. A 360-degree continuous curvilinear capsulorrhexis was performed using a pre-bent 25-gauge needle. Hydrodissection and hydrodelineation were performed using a Hector cannula and balanced salt solution. Utilizing the tip of the Hector cannula, the nucleus was rotated freely within the capsular bag. A standard one-handed phacoemulsification was utilized at this time for sculpting and rotating of the nucleus. The nucleus was fragmented in its entirety and aspirated without any consequence. A standard I&A was carried out for the residual cortical material. No residual material was noted within the capsular bag. The posterior capsule was noted to be clear. Additional Viscoelastic was injected into the capsular bag in preparation for lens implantation. After this has been satisfactorily achieved the intraocular lens injected through the corneal incision into the capsular bag. The intraocular lens was manipulated until it was properly oriented and the Viscoelastic was evacuated from the capsular bag and anterior chamber. The anterior chamber was reformed with balanced salt solution. The corneal incision was irrigated with BSS. The intraocular pressure was found to be within normal limits. This terminated the procedure. The speculum and lid drapes were removed. TobraDex ophthalmic suspension and [place] 1% drops one drop was applied to the eye. POSTOPERATIVE CONDITION: The patient was brought to the Post anesthesia Recovery area with stable vital signs. DOMA CASH MD
== END 2018-03-30 15:17 | disposition home or self-care (01) ==
LOC: H.OPSURG 09:04
PROVIDERS: ATTEND Ophthalmology
DX: H25.812 Combined forms of age-related cataract, left eye (principal); M19.90 Unspecified osteoarthritis, unspecified site; J44.9 Chronic obstructive pulmonary disease, unspecified; I10 Essential (primary) hypertension
CPT/HCPCS: 66984; J0171; J2250; J3010; J7120

== ENCOUNTER 2018-04-13 09:50 | Day surgery (SDC) | payer MEDICARE, MEDICAID ==
[2018-03-22 10:34] VITALS: BMI 25.5
[2018-04-13] MEDS ORDERED: Maxitrol Opht Susp ONE (10:06)
[2018-04-13] MEDS ORDERED: Tetracaine 0.5% Ophth 2 ML BOTTLE ONE (10:07)
[2018-04-13] MEDS ORDERED: Pilocarpine 1% Opht Soln ONE (10:07)
[2018-04-13] MEDS ORDERED: EPINEPHrine 1 mg/ml (1:1000) Inj ONE (10:07)
[2018-04-13] MEDS ORDERED: Lidocaine 1% 20 MG/2 ML PF AMP ONE (10:07)
[2018-04-13] MEDS ORDERED: Carbachol 0.01% IO ONE (10:08)
[2018-04-13] MEDS ORDERED: STERILE IRRIGATING SOLUTION 15 ML IR ONE (10:08)
[2018-04-13] MEDS ORDERED: CA CL/K CL/NA CL 500 ML IR ONE (10:08)
[2018-04-13] MEDS ORDERED: STERILE IRRIGATING SOLUTION 30 ML IR ONE (10:08)
[2018-04-13] MEDS ORDERED: Succinylcholine 200 mg/10 ml Inj IV ONE (10:09)
[2018-04-13] MEDS ORDERED: Povidone Iodine 5% Opht SOLUTION ONE (10:09)
[2018-04-13] MEDS ORDERED: Phenylephrine 2.5% Opht Soln OD ONE ×2 (10:45→11:20)
[2018-04-13] MEDS ORDERED: Flurbiprofen 0.03% Opht SOLN OD ONE ×2 (10:45→11:20)
[2018-04-13] MEDS ORDERED: Tropicamide 1% Opht 150 DROP/15 ML OD ONE ×2 (10:45→11:25)
[2018-04-13] MEDS ORDERED: Lactated Ringer's 1,000 ML IV ONE (11:20)
[2018-04-13 11:22] VITALS: RESP 18; O2SAT 98
[2018-04-13] MEDS ORDERED: Midazolam 2 MG/2 ML VIAL ONE (11:54)
[2018-04-13] MEDS ORDERED: Chondroitin/Hyaluronate Opth Syringe KIT (0.55 ml-0.5 ml) IO ONE (12:21)
[2018-04-13 14:46] VITALS: BP 136/75; PULSE 60; TEMP 97.2
--- NOTE | 2018-04-14 07:22 | OP ---
PROCEDURE DATE: 04/13/2018 SURGEON: OMA LÓPEZ MD ANESTHESIOLOGIST: LENY QUICK MD ANESTHESIA: LOCAL / IV SEDATION PREOPERATIVE DIAGNOSIS: CATARACT RIGHT EYE. POSTOPERATIVE DIAGNOSIS: CATARACT RIGHT EYE. OPERATION: CLEAR CORNEAL PHACOEMULSIFICATION WITH LENS IMPLANT RIGHT EYE. PREPARATION AND PROCEDURE: After the patient was prepped and draped in the usual manner for sterile ophthalmic surgery, local IV sedation was administered; eye seals were applied to the upper and lower lid margins and an adult wire lid speculum was placed within the lids. Under microsurgical control, a two-step clear corneal incision was made into the anterior chamber. The initial incision was perpendicular to the corneal plane. The second incision with the keratome was placed at a 45-degree angle to the first incision. One cc of one percent Xylocaine MPF was instilled into the anterior chamber to achieve proper intraocular anesthesia. At this time, the Viscoelastic was injected into the anterior chamber for protection of the endothelium and for maintenance of the chamber depth. A 360-degree continuous curvilinear capsulorrhexis was performed using a pre-bent 25-gauge needle. Hydrodissection and hydrodelineation were performed using a Hector cannula and balanced salt solution. Utilizing the tip of the Hector cannula, the nucleus was rotated freely within the capsular bag. A standard one-handed phacoemulsification was utilized at this time for sculpting and rotating of the nucleus. The nucleus was fragmented in its entirety and aspirated without any consequence. A standard I&A was carried out for the residual cortical material. No residual material was noted within the capsular bag. The posterior capsule was noted to be clear. Additional Viscoelastic was injected into the capsular bag in preparation for lens implantation. After this has been satisfactorily achieved the intraocular lens injected through the corneal incision into the capsular bag. The intraocular lens was manipulated until it was properly oriented and the Viscoelastic was evacuated from the capsular bag and anterior chamber. The anterior chamber was reformed with balanced salt solution. The corneal incision was irrigated with BSS. The intraocular pressure was found to be within normal limits. This terminated the procedure. The speculum and lid drapes were removed. TobraDex ophthalmic suspension and Pilocarpine 1% drops one drop was applied to the eye. POSTOPERATIVE CONDITION: The patient was brought to the Post anesthesia Recovery area with stable vital signs. DOMA CASH MDD
== END 2018-04-13 16:30 | disposition home or self-care (01) ==
LOC: H.OPSURG 09:50
PROVIDERS: ATTEND Ophthalmology
DX: H25.811 Combined forms of age-related cataract, right eye (principal); M19.90 Unspecified osteoarthritis, unspecified site; J44.9 Chronic obstructive pulmonary disease, unspecified; Z86.73 Personal history of transient ischemic attack (TIA), and cerebral infarction without residual deficits; I10 Essential (primary) hypertension; F32.9 Major depressive disorder, single episode, unspecified; F41.9 Anxiety disorder, unspecified
CPT/HCPCS: 66984; J0171; J0330; J2250; J3010; J7120; V2632